=== PATIENT | female | born 1975 | race American Indian/Alaskan Native ===

== ENCOUNTER 2019-06-19 23:02 | Emergency (ER) | payer MEDICAID, OTHER ==
[2019-06-19 23:13] VITALS: PULSE 89
[2019-06-19] MEDS ORDERED: Nitroglycerin 0.4 MG Tab.SL SL ONE (23:21)
[2019-06-19] MEDS ORDERED: Aspirin 81 MG Tab.Chew PO ONE (23:21)
[2019-06-19 23:26] VITALS: BP 143/81
--- NOTE | 2019-06-19 23:41 | EDM.PDOC ---
"ED HPI GENERAL MEDICAL PROBLEM - General Chief Complaint: Abdominal Pain Stated Complaint: LEFT SIDE PAIN Time Seen by Provider: 06/19/19 23:15 Source of Information: Reports: Patient History Limitations: Reports: No Limitations - History of Present Illness INITIAL COMMENTS - FREE TEXT/NARRATIVE: c/o left chest pain radiating to shoulder, has had intermittent episodes x 3 weeks, worse tonight. 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 No hx SD , No hx clotting problems. Blood sugars higher past 3 weeks. No fever chills or cough. No nausea or vomiting - Related Data Allergies Allergy/AdvReac Type Severity Reaction Status Date / Time No Known Allergies Allergy Verified 06/19/19 23:05 Home Meds: Home Meds Dicyclomine [Bentyl] 10 mg PO TID PRN 10/27/14 [History] Insulin Aspart [NovoLOG] 35 units SQ TID 10/27/14 [History] Insulin Detemir [Levemir] 50 unit SQ BID 10/27/14 [History] Ranitidine [Zantac] 75 mg PO BID PRN 10/27/14 [History] Lisinopril 5 mg PO DAILY 08/13/16 [History] Hydrochlorothiazide 12.5 mg PO DAILY 05/11/17 [History] Pantoprazole [ProTONIX] 40 mg PO BIDAC 05/11/17 [History] Pioglitazone HCl [Actos] 15 mg PO DAILY 05/11/17 [History] atorvaSTATin [Lipitor] 10 mg PO DAILY 05/11/17 [History] Past Medical History HEENT History: Reports: None Cardiovascular History: Reports: None Respiratory History: Reports: None Gastrointestinal History: Reports: None Genitourinary History: Reports: None 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 Musculoskeletal History: Reports: None Neurological History: Reports: None Psychiatric History: Reports: None Endocrine/Metabolic History: Reports: Diabetes, Type II Hematologic History: Reports: None Immunologic History: Reports: None Oncologic (Cancer) History: Reports: None Dermatologic History: Reports: None - Past Surgical History GI Surgical History: Reports: Cholecystectomy Social & Family History - Tobacco Use Smoking Status *Q: Never Smoker - Caffeine Use Caffeine Use: Reports: Coffee - Recreational Drug Use Recreational Drug Use: No ED ROS GENERAL - Review of Systems Review Of Systems: ROS reveals no pertinent complaints other than HPI. ED EXAM, GENERAL - Physical Exam Exam: See Below Exam Limited By: No Limitations General Appearance: Alert, Anxious, Mild Distress Eye Exam: Bilateral Eye: EOMI Ears: Normal External Exam Nose: Normal Inspection Throat/Mouth: Normal Inspection Head: Atraumatic, Normocephalic Neck: Normal Inspection Respiratory/Chest: No Respiratory Distress, Lungs Clear, Normal Breath Sounds. No: Chest Non-Tender (left anterior tenderness with palpation) Cardiovascular: Regular Rate, Rhythm, No Murmur. No: No Edema (trace) GI/Abdominal: Normal Bowel Sounds, Soft, Tender (mild epigastric) Back Exam: Full Range of Motion Extremities: Normal Inspection, Other (mild increase pain external roation left shoulder) Neurological: Alert, Oriented, Normal Cognition Psychiatric: Anxious Skin Exam: Warm, Dry, Intact EKG INTERPRETATION Rhythm: NSR Course - Vital Signs Last Recorded V/S: Last Vital Signs Temp 98 F 06/19/19 23:11 Pulse 89 06/19/19 23:11 Resp 16 06/19/19 23:11 BP 143/81 H 06/19/19 23:26 Pulse Ox 100 06/19/19 23:11 - Orders/Labs/Meds Orders: Active Orders 24 hr Category Date Time Status EKG Documentation Completion [RC] ONETIME Care 06/19/19 23:22 Active Chest w Cont [CT] Urgent Exams 06/20/19 00:08 Taken Labs: Laboratory Tests 06/19/19 06/19/19 06/19/19 Range/Units 23:08 23:19 23:19 WBC 9.6 (5.0-10.0) 10^3/uL RBC 4.79 (4.2-5.4) 10^6/uL Hgb 11.2 L D (12.0-16.0) g/dL Hct 35.9 L (37.0-47.0) % MCV 74.9 L D (80-100) fL MCH 23.4 L (27.0-34.0) pg MCHC 31.2 L (33.0-35.0) g/dL Plt Count 278 (150-450) 10^3/uL Neut % (Auto) 54.1 (42.2-75.2) % Lymph % (Auto) 37.4 (20.5-50.1) % [place] % (Auto) 6.4 (2-8) % Eos % (Auto) 1.9 (1.0-3.0) % Baso % (Auto) 0.2 (0.0-1.0) % PT 8.7 L (9.0-12.0) SEC INR 0.8 L (0.9-1.2) D-Dimer, Quantitative 623 H (0-400) ng/mL Sodium (135-145) mmol/L Potassium (3.6-5.0) mmol/L Chloride (101-111) mmol/L Carbon Dioxide (21.0-31.0) mmol/L Anion Gap BUN (7-18) mg/dL Creatinine (0.6-1.3) mg/dL Est Cr Clr Drug Dosing mL/min Estimated GFR (MDRD) BUN/Creatinine Ratio Glucose (74-105) mg/dL Lactic Acid (0.5-2.2) mmol/L Calcium (8.4-10.2) mg/dl Total Bilirubin (0.2-1.0) mg/dL AST (10-42) IU/L ALT (10-60) IU/L Alkaline Phosphatase (42-121) IU/L CK-MB (CK-2) (0.4-4.7) ng/mL Troponin I (0.00-0.02) ng/ml B-Natriuretic Peptide (0-100) pg/ml Total Protein (6.7-8.2) g/dl Albumin (3.2-5.5) g/dl Globulin Albumin/Globulin Ratio Amylase (28-100) U/L Lipase (22-51) U/L Urine Color Yellow (YELLOW) Urine Appearance Clear (CLEAR) Urine pH 6.0 (5.0-9.0) Ur Specific Magnolia 1.015 (1.005-1.030) Urine Protein Negative (NEGATIVE) Urine Glucose (UA) 500 H (NEGATIVE) Urine Ketones Negative (NEGATIVE) Urine Occult Blood Negative (NEGATIVE) Urine Nitrite Negative (NEGATIVE) Urine Bilirubin Negative (NEGATIVE) Urine Urobilinogen 2.0 H (0.2-1.0) mg/dL Ur Leukocyte Esterase Negative (NEGATIVE) 06/19/19 06/19/19 06/19/19 Range/Units 23:19 23:19 23:19 WBC (5.0-10.0) 10^3/uL RBC (4.2-5.4) 10^6/uL Hgb (12.0-16.0) g/dL Hct (37.0-47.0) % MCV (80-100) fL MCH (27.0-34.0) pg MCHC (33.0-35.0) g/dL Plt Count (150-450) 10^3/uL Neut % (Auto) (42.2-75.2) % Lymph % (Auto) (20.5-50.1) % [place] % (Auto) (2-8) % Eos % (Auto) (1.0-3.0) % Baso % (Auto) (0.0-1.0) % PT (9.0-12.0) SEC INR (0.9-1.2) D-Dimer, Quantitative (0-400) ng/mL Sodium 137 (135-145) mmol/L Potassium 3.6 (3.6-5.0) mmol/L Chloride 102 (101-111) mmol/L Carbon Dioxide 28.0 (21.0-31.0) mmol/L Anion Gap 10.6 BUN 16 (7-18) mg/dL Creatinine 0.7 (0.6-1.3) mg/dL Est Cr Clr Drug Dosing 108.30 mL/min Estimated GFR (MDRD) > 60 BUN/Creatinine Ratio 22.85 Glucose 170 H (74-105) mg/dL Lactic Acid 1.4 (0.5-2.2) mmol/L Calcium 9.0 (8.4-10.2) mg/dl Total Bilirubin 0.6 (0.2-1.0) mg/dL AST 16 (10-42) IU/L ALT 17 (10-60) IU/L Alkaline Phosphatase 79 (42-121) IU/L CK-MB (CK-2) 1.80 (0.4-4.7) ng/mL Troponin I < 0.02 (0.00-0.02) ng/ml B-Natriuretic Peptide 7 (0-100) pg/ml Total Protein 7.5 (6.7-8.2) g/dl Albumin 4.0 (3.2-5.5) g/dl Globulin 3.5 Albumin/Globulin Ratio 1.14 Amylase 28 (28-100) U/L Lipase 40 (22-51) U/L Urine Color (YELLOW) Urine Appearance (CLEAR) Urine pH (5.0-9.0) Ur Specific Magnolia (1.005-1.030) Urine Protein (NEGATIVE) Urine Glucose (UA) (NEGATIVE) Urine Ketones (NEGATIVE) Urine Occult Blood (NEGATIVE) Urine Nitrite (NEGATIVE) Urine Bilirubin (NEGATIVE) Urine Urobilinogen (0.2-1.0) mg/dL Ur Leukocyte Esterase (NEGATIVE) 06/20/19 Range/Units 02:04 WBC (5.0-10.0) 10^3/uL RBC (4.2-5.4) 10^6/uL Hgb (12.0-16.0) g/dL Hct (37.0-47.0) % MCV (80-100) fL MCH (27.0-34.0) pg MCHC (33.0-35.0) g/dL Plt Count (150-450) 10^3/uL Neut % (Auto) (42.2-75.2) % Lymph % (Auto) (20.5-50.1) % [place] % (Auto) (2-8) % Eos % (Auto) (1.0-3.0) % Baso % (Auto) (0.0-1.0) % PT (9.0-12.0) SEC INR (0.9-1.2) D-Dimer, Quantitative (0-400) ng/mL Sodium (135-145) mmol/L Potassium (3.6-5.0) mmol/L Chloride (101-111) mmol/L Carbon Dioxide (21.0-31.0) mmol/L Anion Gap BUN (7-18) mg/dL Creatinine (0.6-1.3) mg/dL Est Cr Clr Drug Dosing mL/min Estimated GFR (MDRD) BUN/Creatinine Ratio Glucose (74-105) mg/dL Lactic Acid (0.5-2.2) mmol/L Calcium (8.4-10.2) mg/dl Total Bilirubin (0.2-1.0) mg/dL AST (10-42) IU/L ALT (10-60) IU/L Alkaline Phosphatase (42-121) IU/L CK-MB (CK-2) (0.4-4.7) ng/mL Troponin I < 0.02 (0.00-0.02) ng/ml B-Natriuretic Peptide (0-100) pg/ml Total Protein (6.7-8.2) g/dl Albumin (3.2-5.5) g/dl Globulin Albumin/Globulin Ratio Amylase (28-100) U/L Lipase (22-51) U/L Urine Color (YELLOW) Urine Appearance (CLEAR) Urine pH (5.0-9.0) Ur Specific Magnolia (1.005-1.030) Urine Protein (NEGATIVE) Urine Glucose (UA) (NEGATIVE) Urine Ketones (NEGATIVE) Urine Occult Blood (NEGATIVE) Urine Nitrite (NEGATIVE) Urine Bilirubin (NEGATIVE) Urine Urobilinogen (0.2-1.0) mg/dL Ur Leukocyte Esterase (NEGATIVE) Meds: Medications Discontinued Medications Generic Name Dose Route Start Last Admin Trade Name Freq PRN Reason Stop Dose Admin Aspirin 324 mg 06/19/19 23:21 06/19/19 23:25 Aspirin PO 06/19/19 23:22 324 mg ONETIME ONE Administration Iopamidol 100 ml 06/20/19 00:08 06/20/19 00:50 Isovue-370 (76%) IVPUSH 06/20/19 00:09 100 ml ONETIME ONE Administration Lorazepam 1 mg 06/20/19 00:09 06/20/19 00:15 Ativan IVPUSH 06/20/19 00:10 1 mg ONETIME ONE Administration Nitroglycerin 0.4 mg 06/19/19 23:21 06/19/19 23:26 Nitrostat SL 06/19/19 23:22 0.4 mg ONETIME ONE Administration - Radiology Interpretation Free Text/Narrative:: [facility] Final Radiology Report Call: [phone] assistance Online chat: [email or web address] Name: GENE SALAZAR Age: 43Years F Date: 06/19/2019 SSN: -- : [id number] Study: XR CHEST 1 VIEW FRONTAL Requesting Physician: DAKOTA CERVANTES Images: 1 Addl Studies: Provided Clinical History: Contrast: Contrast Medium: Contrast Amount: Contrast Method: CONFIDENTIALITY STATEMENT This report is intended only for use by the referring physician, and only in accordance with law. If you received this in error, call [phone]. Page 1 of 1 PROCEDURE INFORMATION: Exam: XR Chest, 1 View Exam date and time: 06/19/2019 11:24 PM Clinical history: 43 years old, female; Left-sided chest pain TECHNIQUE: Imaging protocol: XR of the chest Views: 1 view. COMPARISON: No relevant prior studies available. FINDINGS: Lungs: Unremarkable. No consolidation. Pleural space: Unremarkable. No evidence of pneumothorax. Heart/Mediastinum: Unremarkable. Heart size within normal limits for technique. Bones/joints: Unremarkable. IMPRESSION: No acute findings. Thank you for allowing us to participate in the care of your patient. Dictated and Authenticated by: Daryn Peng MD 06/19/2019 11:35 PM Central Time ([place] & [place]) [facility] Final Radiology Report Call: [phone] assistance Online chat: [email or web address] Name: GENE SALAZAR Age: 43Years F Date: 06/20/2019 SSN: -- : [id number] Study: CT CHEST W Requesting Physician: DAKOTA CERVANTES Images: 462 Addl Studies: Provided Clinical History: LEFT CHEST PAIN, D-DIMER 623, SHORTNESS OF BREATH Contrast: With Contrast Medium: ISOVUE 370 Contrast Amount: 100 mL Contrast Method: LAC Page 1 of 2 PROCEDURE INFORMATION: Exam: CT Chest With Contrast Exam date and time: 06/20/2019 12:32 AM Clinical history: 43 years old, female; Shortness of breath; Additional info: Left chest pain, d-dimer 623, shortness of breath TECHNIQUE: Imaging protocol: Computed tomography of the chest with intravenous contrast. Radiation optimization: All CT scans at this facility use at least one of these dose optimization techniques: automated exposure control; mA and/or kV adjustment per patient size (includes targeted exams where dose is matched to clinical indication); or iterative reconstruction. Contrast material: ISOVUE 370; Contrast volume: 100 ml; Contrast route: LAC; COMPARISON: CR Chest 1V Frontal 06/19/2019 11:24 PM FINDINGS: No pulmonary emboli. Lungs: unremarkable. No consolidation. No masses or suspicious nodules. Pleural space: Unremarkable. No pneumothorax. No pleural effusion. Heart: unremarkable. No pericardial effusion. Aorta: unremarkablel. No significant aortic dilitation. Lymph nodes: Unremarkable. No enlarged lymph nodes. Bones/joints: No acute fracture. Soft tissues: 3 cm circumscribed left breast nodule. IMPRESSION: No acute findings. 3 cm left breast nodule may be a fibroadenoma. Correlate with mammography and breast ultrasound findings. GENE SALAZAR | Final Radiology Report CONFIDENTIALITY STATEMENT This report is intended only for use by the referring physician, and only in accordance with law. If you received this in error, call [phone]. Page 2 of 2 Thank you for allowing us to participate in the care of your patient. Dictated and Authenticated by: Daryn Peng MD Departure - Departure Time of Disposition: 02:39 Disposition: Home, Self-Care 01 Condition: Good Clinical Impression: Non-cardiac chest pain Instructions: Chest Wall Pain Forms: ED Department Discharge Additional Instructions: increase fluids today tylenol 650mg every 4 hours as needed for pain light bland diet monitor blood sugars follow up if recurrent symptoms - My Orders Last 24 Hours: My Active Orders 06/19/19 23:22 EKG Documentation Completion [RC] ONETIME 06/20/19 00:08 Chest w Cont [CT] Urgent - Assessment/Plan Last 24 Hours: My Active Orders 06/19/19 23:22 EKG Documentation Completion [RC] ONETIME 06/20/19 00:08 Chest w Cont [CT] Urgent"
[2019-06-19 23:49] LABS: ANION GAP 10.6; CHLORIDE,CL 102 mmol/L (101-111); SODIUM,NA 137 mmol/L (135-145)
[2019-06-20] MEDS ORDERED: Iopamidol 755 Mg/ML 100 ML Bottle IVPUSH ONE (00:08)
[2019-06-20] MEDS ORDERED: LORazepam 2 MG/ML Syringe IVPUSH ONE (00:09)
== END 2019-06-20 02:46 | disposition home or self-care (01) ==
LOC: DL.ED 23:02
DX: R07.89 Other chest pain (principal); E11.9 Type 2 diabetes mellitus without complications; Z79.4 Long term (current) use of insulin; Z79.899 Other long term (current) drug therapy
CPT/HCPCS: 36415; 71045; 71260; 80053; 81003; 82150; 82553; 83605; 83690; 83880; 84484; 85025; 85379; 85610; 93005; 96374; 99285; A9270; J2060; Q9967

== ENCOUNTER 2019-11-09 06:02 | Day surgery (SDC) | payer MEDICAID, OTHER ==
[2019-11-09] MEDS ORDERED: fentaNYL 100 MCG/2 ML SDV IV ONE ×3 (06:03→07:01)
[2019-11-09] MEDS ORDERED: Midazolam 1 MG/ML 2 ML SDV IV ONE ×3 (06:03→07:02)
[2019-11-09] MEDS ORDERED: Sodium Chloride 0.9% 10 ML Syringe FLUSH PRN (06:30)
[2019-11-09] MEDS ORDERED: Dextrose 5%-0.45% NaCl 1,000 ML IV SCH (06:30)
[2019-11-09] MEDS ORDERED: fentaNYL 100 MCG/2 ML SDV ONE (06:38)
[2019-11-09] MEDS ORDERED: Midazolam 1 MG/ML 2 ML SDV ONE (06:38)
[2019-11-09 09:15] VITALS: BP 145/69; PULSE 78
--- NOTE | 2019-11-09 12:59 | OR ---
DATE: 11/09/2019 PROCEDURES: Esophagogastroduodenoscopy and multiple pinch biopsies. INSTRUMENT USED: [id number]-HQ190 Olympus video panendoscope. PREMEDICATIONS: No oral or topical anesthesia used. Fentanyl 100 mcg intravenous, Versed 2 mg intravenous. 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 INDICATION: The patient with persistent abdominal pain and related symptoms, unexplained and not responsive to medical measures. Esophagogastroduodenoscopy is performed for detection of any active erosive lesions, Delgado esophagus and/or malignancy also under consideration, H pylori status to be determined, small bowel biopsies to be obtained for celiac disease if indicated, endoscopic hemostasis therapy if needed. PROCEDURE IN DETAIL: The scope was passed with ease. Adequate visualization of the esophagus was made from proximal to distal areas. No upper esophageal lesions identified. No distal esophageal stricture. No uphill or downhill esophageal varices noted. No Crystal-Carnes tear. No esophageal polyp or tumor mass identified. Z-line was seen at around 40 cm distal to the oral verge, configuration consistent with grade 1 by ZAP classification. No proximal gastric varices identified. Gastric fundus examination by retroflexion showed no polypoid lesions. No gastric ulcer, malignant mass, or vascular ectasia identified. Duodenal bulb showed no ulcer. Visualized second part of the duodenum was unremarkable. Multiple pinch biopsies, 4 in number, were taken from different areas of the second part of the duodenum and tissues were also obtained from the duodenal bulb at 9 and 12 o'clock positions and sent for any histopathologic evidence of celiac disease. Multiple pinch biopsies were also taken from the gastric antrum and proximal body and sent for PyloriTek test for H pylori and histopathology. No bleeding was noted from any of the visualized areas at the completion of examination. Photographs were taken of the duodenal bulb, gastric antrum, fundus, and distal esophagus. IMPRESSION: Normal study. The patient tolerated the procedure well. [facility] /[id number]
--- NOTE | 2019-11-09 14:46 | LETTER ---
11/09/2019 Virgen Pop NP [facility] [address] [place] [address] RE: GENE RODRIGUEZ : 1975 Dear Ms. Lawson: Ms. Gene Rodriguez had esophagogastroduodenoscopy done this morning and she tolerated the procedure well. I herewith send a copy of the endoscopy note and photographs for your review. Thank you. Sincerely, [facility] /[id number]
== END 2019-11-09 09:16 | disposition home or self-care (01) ==
LOC: DL.ENDO 06:02
PROVIDERS: ATTEND Internal Medicine Gastroenterology
DX: R10.13 Epigastric pain (principal); E66.09 Other obesity due to excess calories; E11.9 Type 2 diabetes mellitus without complications; I10 Essential (primary) hypertension; E78.5 Hyperlipidemia, unspecified; D50.9 Iron deficiency anemia, unspecified; Z88.5 Allergy status to narcotic agent; Z86.69 Personal history of other diseases of the nervous system and sense organs; Z86.018 Personal history of other benign neoplasm; Z90.49 Acquired absence of other specified parts of digestive tract; Z68.41 Body mass index [BMI] 40.0-44.9, adult
CPT/HCPCS: 43239; 87077; J2250; J3010; J7042

== ENCOUNTER → 2019-11-12 | Day surgery (SDC) | payer MEDICAID, OTHER ==
[~2019-11-12] MED LIST: Dextrose 5%-0.45% NaCl 1,000 ML IV SCH; Midazolam 1 MG/ML 2 ML SDV IV ONE; Midazolam 1 MG/ML 2 ML SDV ONE; fentaNYL 100 MCG/2 ML SDV IV ONE; fentaNYL 100 MCG/2 ML SDV ONE
--- NOTE | 2019-11-12 08:47 | OR ---
DATE: 11/12/2019 PROCEDURES: Total colonoscopy, narrow-band imaging, multiple cold snare polypectomies, and biopsies. INSTRUMENT USED: [id number]-H190DL Olympus video colonoscope. PREMEDICATIONS: Fentanyl 150 mcg intravenous, Versed 4 mg intravenous, nasal O2 cannula. The procedure was done under pulse oximetry, BP recording, and monitor technician. INDICATION: The patient with chronic diarrhea and abdominal pain, unexplained and not responsive to medical measures. Colonoscopic examination is done for detection of any polypoid lesions and removal, biopsies to be obtained for microscopic colitis, endoscopic hemostasis therapy if needed. DESCRIPTION OF PROCEDURE: Initial rectal exam was unremarkable. Rigid anoscopy was normal. The colonoscope was passed with ease up to the ileocecal area. Photographs were taken of the cecum showing 8 mm sized benign-appearing sessile polyp, NBI views were obtained. Piecemeal cold polypectomy was done, the tissues were retrieved and sent for histopathology. NBI views were obtained of the polyp. No bleeding was noted from any of the visualized areas at the commencement of the examination. The bowel preparation was found to be adequate, Campbell scale 2 in all the regions, total score 6. In the distal descending colon, 5 mm sized benign-appearing polyp was noted, cold snare polypectomy was done, the tissue was retrieved and sent for histopathology. No stricture. No vascular ectasia. No large isolated ulcerations seen. No evidence of diffuse inflammatory bowel disease in the form of friability, contact bleeding, or ulcerations. Probing the proximal sides of folds and flexures using adequate distention and clearing up the stool material, withdrawal of the scope was made. Multiple pinch biopsies were obtained from the normal-appearing mucosa of the mid transverse colon, mid descending colon, and rectosigmoid, and sent for histopathologic evidence of microscopic colitis. No bleeding was noted from any of the visualized areas at the completion of examination. IMPRESSION: Multiple colonic polyps. The patient tolerated the procedure well. [facility] /[id number]
--- NOTE | 2019-11-12 10:38 | LETTER ---
11/12/2019 Virgen Pop NP [facility] [address] [place] [address] RE: GENE SALAZAR : 1975 Dear Ms. Pop: Ms. Gene Nevillebrick had colonoscopic examination done this morning and she tolerated the procedure well. I herewith send a copy of the endoscopy note and photographs for your review. Thank you. Sincerely, [facility] /[id number]
[2019-11-12 12:11] VITALS: BP 132/65; PULSE 73
== END ==
LOC: DL.ENDO 06:11
PROVIDERS: ATTEND Internal Medicine Gastroenterology
DX: D12.0 Benign neoplasm of cecum (principal); D12.4 Benign neoplasm of descending colon; E66.01 Morbid (severe) obesity due to excess calories; E11.9 Type 2 diabetes mellitus without complications; I10 Essential (primary) hypertension; D50.9 Iron deficiency anemia, unspecified; E78.5 Hyperlipidemia, unspecified; Z90.49 Acquired absence of other specified parts of digestive tract; Z88.5 Allergy status to narcotic agent; Z88.8 Allergy status to other drugs, medicaments and biological substances; Z86.018 Personal history of other benign neoplasm; Z86.19 Personal history of other infectious and parasitic diseases; Z68.41 Body mass index [BMI] 40.0-44.9, adult
CPT/HCPCS: 45380; 45385; J2250; J3010; J7042

== ENCOUNTER 2020-04-04 12:09 | Inpatient (IN) | payer OTHER ==
[2020-04-04] MEDS ORDERED: Sodium Chloride 0.9% 1,000 ML IV ONE (12:43)
--- NOTE | 2020-04-04 12:43 | EDM.PDOC ---
ED HPI GENERAL MEDICAL PROBLEM - General Chief Complaint: Skin Complaint Stated Complaint: LOWER INFLAMATION Time Seen by Provider: 04/04/20 12:25 Source of Information: Reports: Patient History Limitations: Reports: No Limitations - History of Present Illness INITIAL COMMENTS - FREE TEXT/NARRATIVE: This 44 yo female patient was sent to the ED from the [facility] due to left lower extremity swelling, redness and pain. The patient reports she woke up this morning at about 0400 with pain to her left lower extremity. The patient reports she felt normal yesterday. The patient has no recent history of injury. The patient reports she had a previous infection in the same area 4 years ago. The patient had a temp of 102.5 while at home and also at the [facility]. The patient did test negative for COVID while at the [facility]. The patient reports she took Tylenol (2000 mg) this morning and was given an injection of Toradol (60 mg) while at the Clinic. The patient reports her pain has gotten a little better, but she continues to have pain radiating up to her buttocks. 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 Left Lower Leg Pain Score (Numeric/FACES): 9 - Related Data Allergies Allergy/AdvReac Type Severity Reaction Status Date / Time codeine AdvReac Lightheaded Verified 04/04/20 12:30 ness tramadol AdvReac Dizziness Verified 04/04/20 12:30 Home Meds: Home Meds Lisinopril 5 mg PO DAILY 08/13/16 [History] Hydrochlorothiazide 12.5 mg PO DAILY 05/11/17 [History] Pantoprazole [ProTONIX] 40 mg PO DAILY 05/11/17 [History] atorvaSTATin [Lipitor] 10 mg PO DAILY 05/11/17 [History] Furosemide 20 mg PO BID 11/06/19 [History] Triamcinolone Acetonide [Kenalog 0.1% Lotion] 1 applic TOP ASDIRECTED 11/06/19 [History] glipiZIDE [Glipizide ER] 5 mg PO DAILY 11/06/19 [History] metFORMIN [Glucophage] 500 mg PO BID 11/06/19 [History] Alogliptin Benzoate [Alogliptin] 25 mg PO DAILY 04/04/20 [History] Amitriptyline [Elavil] 50 mg PO BEDTIME 04/04/20 [History] Baclofen 10 mg PO BEDTIME PRN 04/04/20 [History] Furosemide 20 mg PO BEDTIME 04/04/20 [History] Insulin Aspart [Insulin Aspart Flexpen] 40 units SQ ASDIRECTED 04/04/20 [History] Insulin Detemir [Levemir] 50 units SQ BID 04/04/20 [History] Meclizine HCl 25 mg PO TID PRN 04/04/20 [History] Multivitamin [Multi-Vitamin Daily] 1 tab PO DAILY 04/04/20 [History] Potassium Chloride [K-Tab ER] 10 meq PO DAILY 04/04/20 [History] metroNIDAZOLE [Metronidazole] 1 applic TOP BID PRN 04/04/20 [History] Past Medical History HEENT History: Reports: None Cardiovascular History: Reports: High Cholesterol, Hypertension Respiratory History: Reports: None Gastrointestinal History: Reports: GERD, Inflammatory Bowel Disease Genitourinary History: Reports: None 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 Musculoskeletal History: Reports: Arthritis Neurological History: Reports: Migraines Psychiatric History: Reports: None Endocrine/Metabolic History: Reports: Diabetes, Type II, Obesity/BMI 30+ Hematologic History: Reports: Anemia Immunologic History: Reports: Other (See Below) Other Immunologic History: SEPSIS WITH CUTANEOUS MANIFESTATIONS Oncologic (Cancer) History: Reports: None Dermatologic History: Reports: Cellulitis - Infectious Disease History Infectious Disease History: Reports: Helicobacter Pylori - Past Surgical History Head Surgeries/Procedures: Reports: None HEENT Surgical History: Reports: Tonsillectomy Cardiovascular Surgical History: Reports: None Respiratory Surgical History: Reports: None GI Surgical History: Reports: Cholecystectomy, EGD Female Surgical History: Reports: None Musculoskeletal Surgical History: Reports: Arthroscopic Knee Social & Family History - Caffeine Use Caffeine Use: Reports: Coffee, Energy Drinks, Soda Other Caffeine Use: 24 oz coffee daily. 60 oz energy drinks daily. 40 oz soda daily ED ROS GENERAL - Review of Systems Review Of Systems: Comprehensive ROS is negative, except as noted in HPI. ED EXAM, SKIN/RASH Exam: See Below Exam Limited By: No Limitations General Appearance: Alert, WD/WN, Moderate Distress, Obese Eye Exam: Bilateral Eye: EOMI, Normal Inspection, PERRL Ears: Normal External Exam, Normal Canal, Hearing Grossly Normal, Normal TMs Nose: Normal Inspection, Normal Mucosa, No Blood Throat/Mouth: Normal Inspection, Normal Lips, Normal Teeth, Normal Gums, Normal Oropharynx, Normal Voice, No Airway Compromise Head: Atraumatic, Normocephalic Neck: Normal Inspection, Supple, Non-Tender, Full Range of Motion Respiratory/Chest: No Respiratory Distress, Lungs Clear, Normal Breath Sounds, No Accessory Muscle Use, Chest Non-Tender Cardiovascular: Normal Peripheral Pulses, Regular Rate, Rhythm, No Edema, No Gallop, No JVD, No Murmur, No Rub GI/Abdominal: Normal Bowel Sounds, Soft, Non-Tender, No Organomegaly, No Dis tention, No Abnormal Bruit, No Mass (Female) Exam: Deferred Rectal (Female) Exam: Deferred Back Exam: Normal Inspection, Full Range of Motion, NT Extremities: Leg Pain (left lower extremity pain with erythema mid lower left leg with no evidence of wound or injury) Neurological: Alert, Oriented, CN II-XII Intact, Normal Cognition, Normal Gait, Normal Reflexes, No Motor/Sensory Deficits Psychiatric: Normal Affect, Normal Mood Skin: Warm, Dry, Intact, Erythema Location, Skin: Lower Extremity, Left Characteristics: Erythematous Associated features: Warmth, Tenderness, Swelling, Inflammation. No: Induration, Crusting, Weeping Lymphatic: No Adenopathy Course - Vital Signs Last Recorded V/S: Last Vital Signs Temp 37.5 C 04/04/20 12:23 Pulse 106 H 04/04/20 12:23 Resp 17 04/04/20 12:23 BP 125/63 04/04/20 12:23 Pulse Ox 96 04/04/20 12:23 - Orders/Labs/Meds Orders: Active Orders 24 hr Category Date Time Status Admission Diagnosis [ADT] Stat ADT 04/04/20 13:41 Ordered Admission Status [Patient Status] [ADT] Routine ADT 04/04/20 13:41 Ordered CULTURE BLOOD [BC] Stat Lab 04/04/20 12:27 Received CULTURE BLOOD [BC] Stat Lab 04/04/20 12:48 Received D-DIMER QUANTITATIVE [COAG] Stat Lab 04/04/20 12:37 Ordered Vancomycin 2 gm Med 04/04/20 13:23 Active Sodium Chloride 0.9% [Normal Saline] 500 ml IV ONETIME Blood Culture x2 Reflex Set [OM.PC] Stat Oth 04/04/20 12:30 Ordered Medication Orders Vancomycin HCl 2 gm/ Sodium (Chloride) 500 mls @ 250 mls/hr IV ONETIME ONE Stop: 04/04/20 15:22 Labs: Laboratory Tests 04/04/20 04/04/20 04/04/20 Range/Units 12:27 12:27 12:27 WBC 26.3 H* (5.0-10.0) 10^3/uL RBC 4.82 (4.2-5.4) 10^6/uL Hgb 11.2 L (12.0-16.0) g/dL Hct 35.5 L (37.0-47.0) % MCV 73.7 L (80-100) fL MCH 23.2 L (27.0-34.0) pg MCHC 31.5 L (33.0-35.0) g/dL Plt Count 254 (150-450) 10^3/uL Neut % (Auto) 92.4 H (42.2-75.2) % Lymph % (Auto) 3.2 L (20.5-50.1) % Nolan % (Auto) 4.3 (2-8) % Eos % (Auto) 0.0 L (1.0-3.0) % Baso % (Auto) 0.1 (0.0-1.0) % Sodium 137 (136-145) mmol/L Potassium 3.2 L (3.5-5.1) mmol/L Chloride 98 (98-107) mmol/L Carbon Dioxide 28 (21-32) mmol/L Anion Gap 14.2 H (7-13) mEq/L BUN 19 H (7-18) mg/dL Creatinine 1.19 H (0.55-1.02) mg/dL Est Cr Clr Drug Dosing 63.05 mL/min Estimated GFR (MDRD) 49 BUN/Creatinine Ratio 16.0 (No establ ref range) Glucose 150 H (74-99) mg/dL Lactic Acid 1.9 (0.4-2.0) mmol/L Calcium 8.8 (8.5-10.1) mg/dL Total Bilirubin 0.8 (0.2-1.0) mg/dL AST 22 (15-37) U/L ALT 34 (14-59) U/L Alkaline Phosphatase 82 (46-116) U/L Total Protein 8.0 (6.4-8.2) g/dL Albumin 3.8 (3.4-5.0) g/dL Globulin 4.2 Albumin/Globulin Ratio 0.9 Urine Color (YELLOW) Urine Appearance (CLEAR) Urine pH (5.0-9.0) Ur Specific [place] (1.005-1.030) Urine Protein (NEGATIVE) Urine Glucose (UA) (NEGATIVE) Urine Ketones (NEGATIVE) Urine Occult Blood (NEGATIVE) Urine Nitrite (NEGATIVE) Urine Bilirubin (NEGATIVE) Urine Urobilinogen (0.2-1.0) mg/dL Ur Leukocyte Esterase (NEGATIVE) Urine HCG, Qual Urine Opiates Screen (NEGATIVE) Ur Oxycodone Screen (NEGATIVE) Urine Methadone Screen (NEGATIVE) Ur Barbiturates Screen (NEGATIVE) U Tricyclic Antidepress (NEGATIVE) Ur Phencyclidine Scrn (NEGATIVE) Ur Amphetamine Screen (NEGATIVE) U Methamphetamines Scrn (NEGATIVE) Urine MDMA Screen (NEGATIVE) U Benzodiazepines Scrn (NEGATIVE) Urine Cocaine Screen (NEGATIVE) U Marijuana (THC) Screen (NEGATIVE) Ethyl Alcohol < 3 (0) mg/dL 04/04/20 04/04/20 04/04/20 Range/Units 12:47 12:47 12:47 WBC (5.0-10.0) 10^3/uL RBC (4.2-5.4) 10^6/uL Hgb (12.0-16.0) g/dL Hct (37.0-47.0) % MCV (80-100) fL MCH (27.0-34.0) pg MCHC (33.0-35.0) g/dL Plt Count (150-450) 10^3/uL Neut % (Auto) (42.2-75.2) % Lymph % (Auto) (20.5-50.1) % Nolan % (Auto) (2-8) % Eos % (Auto) (1.0-3.0) % Baso % (Auto) (0.0-1.0) % Sodium (136-145) mmol/L Potassium (3.5-5.1) mmol/L Chloride (98-107) mmol/L Carbon Dioxide (21-32) mmol/L Anion Gap (7-13) mEq/L BUN (7-18) mg/dL Creatinine (0.55-1.02) mg/dL Est Cr Clr Drug Dosing mL/min Estimated GFR (MDRD) BUN/Creatinine Ratio (No establ ref range) Glucose (74-99) mg/dL Lactic Acid (0.4-2.0) mmol/L Calcium (8.5-10.1) mg/dL Total Bilirubin (0.2-1.0) mg/dL AST (15-37) U/L ALT (14-59) U/L Alkaline Phosphatase (46-116) U/L Total Protein (6.4-8.2) g/dL Albumin (3.4-5.0) g/dL Globulin Albumin/Globulin Ratio Urine Color Yellow (YELLOW) Urine Appearance Clear (CLEAR) Urine pH 5.0 (5.0-9.0) Ur Specific [place] 1.015 (1.005-1.030) Urine Protein Negative (NEGATIVE) Urine Glucose (UA) Negative (NEGATIVE) Urine Ketones Negative (NEGATIVE) Urine Occult Blood Negative (NEGATIVE) Urine Nitrite Negative (NEGATIVE) Urine Bilirubin Negative (NEGATIVE) Urine Urobilinogen 0.2 (0.2-1.0) mg/dL Ur Leukocyte Esterase Negative (NEGATIVE) Urine HCG, Qual Negative Urine Opiates Screen Negative (NEGATIVE) Ur Oxycodone Screen Negative (NEGATIVE) Urine Methadone Screen Negative (NEGATIVE) Ur Barbiturates Screen Negative (NEGATIVE) U Tricyclic Antidepress Negative (NEGATIVE) Ur Phencyclidine Scrn Negative (NEGATIVE) Ur Amphetamine Screen Negative (NEGATIVE) U Methamphetamines Scrn Negative (NEGATIVE) Urine MDMA Screen Negative (NEGATIVE) U Benzodiazepines Scrn Negative (NEGATIVE) Urine Cocaine Screen Negative (NEGATIVE) U Marijuana (THC) Screen Negative (NEGATIVE) Ethyl Alcohol (0) mg/dL Meds: Medications Generic Name Dose Route Start Last Admin Trade Name Freq PRN Reason Stop Dose Admin Vancomycin HCl 2 gm/ Sodium 500 mls @ 250 mls/hr 04/04/20 13:23 Chloride IV 04/04/20 15:22 ONETIME ONE Discontinued Medications Generic Name Dose Route Start Last Admin Trade Name Freq PRN Reason Stop Dose Admin Sodium Chloride 1,000 mls @ 999 mls/hr 04/04/20 12:43 04/04/20 12:55 Normal Saline IV 04/04/20 13:43 999 mls/hr .BOLUS ONE Administration Morphine Sulfate 2 mg 04/04/20 13:46 Morphine IVPUSH 04/04/20 13:47 ONETIME ONE Departure - Departure Time of Disposition: 13:50 Disposition: Admitted As Inpatient 66 Condition: Fair Clinical Impression: Cellulitis Qualifiers: Site of cellulitis: extremity Site of cellulitis of extremity: lower extremity Laterality: left Qualified Code(s): L03.116 - Cellulitis of left lower limb - Discharge Information *PRESCRIPTION DRUG MONITORING PROGRAM REVIEWED*: Not Applicable *COPY OF PRESCRIPTION DRUG MONITORING REPORT IN PATIENT BRIAN: Not Applicable Care Plan Goals: Discussed the patient's history examination, lab results and initial treatments with Dr. aHmm. Dr. Hamm accepted the patient for continued evaluation and man agement as an inpatient at [facility] in [place]. The patient was advised of the plan for admission and reported increased pain in her left lower leg. An order was placed for 2 mg of IV Morphine to be given before admission. Sepsis Event Note (ED) - Evaluation Sepsis Screening Result: No Definite Risk - Focused Exam Vital Signs: Vital Signs Temp Pulse Resp BP Pulse Ox 04/04/20 12:23 37.5 C 106 H 17 125/63 96 - My Orders Last 24 Hours: My Active Orders 04/04/20 12:27 CULTURE BLOOD [BC] Stat 04/04/20 12:30 Blood Culture x2 Reflex Set [OM.PC] Stat 04/04/20 12:37 D-DIMER QUANTITATIVE [COAG] Stat 04/04/20 12:48 CULTURE BLOOD [BC] Stat 04/04/20 13:23 Vancomycin 2 gm Sodium Chloride 0.9% [Normal Saline] 500 ml IV ONETIME 04/04/20 13:41 Admission Diagnosis [ADT] Stat Admission Status [Patient Status] [ADT] Routine - Assessment/Plan Last 24 Hours: My Active Orders 04/04/20 12:27 CULTURE BLOOD [BC] Stat 04/04/20 12:30 Blood Culture x2 Reflex Set [OM.PC] Stat 04/04/20 12:37 D-DIMER QUANTITATIVE [COAG] Stat 04/04/20 12:48 CULTURE BLOOD [BC] Stat 04/04/20 13:23 Vancomycin 2 gm Sodium Chloride 0.9% [Normal Saline] 500 ml IV ONETIME 04/04/20 13:41 Admission Diagnosis [ADT] Stat Admission Status [Patient Status] [ADT] Routine
[2020-04-04 12:58] LABS: ANION GAP 14.2 mEq/L (7-13); CHLORIDE,CL 98 mmol/L (98-107); SODIUM,NA 137 mmol/L (136-145)
[2020-04-04] MEDS ORDERED: Vancomycin 2 GM in Sodium Chloride 0.9% 500 ML IV ONE (13:23)
[2020-04-04] MEDS ORDERED: Morphine 2 MG/ML SYRINGE IVPUSH ONE (13:46)
[2020-04-04] MEDS ORDERED: 50% Dextrose in Water 50 ML Syringe IVPUSH PRN (15:06)
[2020-04-04] MEDS ORDERED: Docusate Sodium 100 MG Cap PO PRN (15:10)
[2020-04-04] MEDS ORDERED: Ondansetron 4 MG/2 ML SDV IVPUSH PRN (15:10)
--- NOTE | 2020-04-04 15:59 | PCM.HP ---
H&P History of Present Illness - General Date of Service: 04/04/20 Admit Problem/Dx: Admission Diagnosis/Problem Admission Diagnosis/Problem Cellulitis Source of Information: Patient - History of Present Illness Initial Comments - Free Text/Narative: 44-year-old with a history of diabetes. Blood sugars usually run in the high 100s. His history of left lower extremity cellulitis. She also has a history of the ectopic dermatitis. 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 Noted left lower extremity redness, associated with pain with touching. No open pain, no chest pain. No urinary burning Left Lower Leg Pain Score (Numeric/FACES): 9 - Related Data Allergies/Adverse Reactions: Allergies Allergy/AdvReac Type Severity Reaction Status Date / Time liraglutide [From Victoza] Allergy Diarrhea Verified 04/04/20 14:37 codeine AdvReac Lightheaded Verified 04/04/20 12:30 ness tramadol AdvReac Dizziness Verified 04/04/20 12:30 Home Medications: Home Meds Lisinopril 5 mg PO DAILY 08/13/16 [History] Hydrochlorothiazide 12.5 mg PO DAILY 05/11/17 [History] Pantoprazole [ProTONIX] 40 mg PO DAILY 05/11/17 [History] atorvaSTATin [Lipitor] 10 mg PO DAILY 05/11/17 [History] Triamcinolone Acetonide [Kenalog 0.1% Lotion] 1 applic TOP BID PRN 11/06/19 [History] glipiZIDE [Glipizide ER] 10 mg PO DAILY 11/06/19 [History] metFORMIN [Glucophage] 500 mg PO BID 11/06/19 [History] Alogliptin Benzoate [Alogliptin] 25 mg PO DAILY 04/04/20 [History] Amitriptyline [Elavil] 50 mg PO BEDTIME 04/04/20 [History] Baclofen 10 mg PO BEDTIME PRN 04/04/20 [History] Furosemide 20 mg PO BEDTIME 04/04/20 [History] Insulin Aspart [Insulin Aspart Flexpen] 40 units SQ TIDMEALS 04/04/20 [History] Insulin Detemir [Levemir] 50 units SQ BID 04/04/20 [History] Meclizine HCl 25 mg PO TID PRN 04/04/20 [History] Multivitamin [Multi-Vitamin Daily] 1 tab PO DAILY 04/04/20 [History] Potassium Chloride [K-Tab ER] 10 meq PO DAILY 04/04/20 [History] metroNIDAZOLE [Metronidazole] 1 applic TOP BID PRN 04/04/20 [History] Past Medical History HEENT History: Reports: None Cardiovascular History: Reports: High Cholesterol, Hypertension Respiratory History: Reports: None Gastrointestinal History: Reports: GERD, Inflammatory Bowel Disease Genitourinary History: Reports: None 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 low vit d Immunologic History: Reports: Other (See Below) Other Immunologic History: SEPSIS WITH CUTANEOUS MANIFESTATIONS Oncologic (Cancer) History: Reports: None Dermatologic History: Reports: Cellulitis, Psoriasis Other Dermatologic History: plaque psoriasis - Infectious Disease History Infectious Disease History: Reports: Chicken Pox, Helicobacter Pylori - Past Surgical History Head Surgeries/Procedures: Reports: None HEENT Surgical History: Reports: Tonsillectomy Cardiovascular Surgical History: Reports: None Respiratory Surgical History: Reports: None GI Surgical History: Reports: Cholecystectomy, EGD, Other (See Below) Female Surgical History: Reports: None Musculoskeletal Surgical History: Reports: Arthroscopic Knee, Other (See Below) Other Musculoskeletal Surgeries/Procedures:: Left knee surgery x 3 Social & Family History - Tobacco Use Smoking Status *Q: Former Smoker Used Tobacco, but Quit: Yes Month/Year Tobacco Last Used: 2 years ago - Caffeine Use Caffeine Use: Reports: Energy Drinks, Soda, Tea Other Caffeine Use: 24 oz coffee daily. 60 oz energy drinks daily. 40 oz soda daily - Recreational Drug Use Recreational Drug Use: No H&P Review of Systems - Review of Systems: Review Of Systems: See Below General: Reports: Fever, Chills, Malaise Cardiovascular: Denies: Chest Pain, Edema Gastrointestinal: Denies: Abdominal Pain Genitourinary: Denies: Dysuria Skin: Reports: Erythema (Left lower extremity) Exam - Exam Exam: See Below - Vital Signs Vital Signs: Last Vital Signs Temp 98.4 F 04/04/20 14:30 Pulse 97 04/04/20 14:30 Resp 20 04/04/20 14:30 BP 117/57 L 04/04/20 14:30 Pulse Ox 98 04/04/20 15:10 Weight: 288 lb 12.8 oz - Exam General: Alert, Oriented Neck: Supple Lungs: Clear to Auscultation, Normal Respiratory Effort Cardiovascular: Regular Rate, Regular Rhythm GI/Abdominal Exam: Normal Bowel Sounds, Soft, Non-Tender Extremities: No Pedal Edema Skin: Warm, Other (Left lower extremity mid calf, circumferential redness, tenderness, warmth) Neuro Extensive - Mental Status: Alert, Oriented x3 - Patient Data Lab Results Last 24 hrs: Laboratory Results - last 24 hr 04/04/20 04/04/20 04/04/20 Range/Units 12:27 12:27 12:27 WBC 26.3 H* (5.0-10.0) 10^3/uL RBC 4.82 (4.2-5.4) 10^6/uL Hgb 11.2 L (12.0-16.0) g/dL Hct 35.5 L (37.0-47.0) % MCV 73.7 L (80-100) fL MCH 23.2 L (27.0-34.0) pg MCHC 31.5 L (33.0-35.0) g/dL Plt Count 254 (150-450) 10^3/uL Neut % (Auto) 92.4 H (42.2-75.2) % Lymph % (Auto) 3.2 L (20.5-50.1) % [place] % (Auto) 4.3 (2-8) % Eos % (Auto) 0.0 L (1.0-3.0) % Baso % (Auto) 0.1 (0.0-1.0) % D-Dimer, Quantitative (0-400) ng/mL Sodium 137 (136-145) mmol/L Potassium 3.2 L (3.5-5.1) mmol/L Chloride 98 (98-107) mmol/L Carbon Dioxide 28 (21-32) mmol/L Anion Gap 14.2 H (7-13) mEq/L BUN 19 H (7-18) mg/dL Creatinine 1.19 H (0.55-1.02) mg/dL Est Cr Clr Drug Dosing 63.05 mL/min Estimated GFR (MDRD) 49 BUN/Creatinine Ratio 16.0 (No establ ref range) Glucose 150 H (74-99) mg/dL Lactic Acid 1.9 (0.4-2.0) mmol/L Calcium 8.8 (8.5-10.1) mg/dL Total Bilirubin 0.8 (0.2-1.0) mg/dL AST 22 (15-37) U/L ALT 34 (14-59) U/L Alkaline Phosphatase 82 (46-116) U/L Total Protein 8.0 (6.4-8.2) g/dL Albumin 3.8 (3.4-5.0) g/dL Globulin 4.2 Albumin/Globulin Ratio 0.9 Urine Color (YELLOW) Urine Appearance (CLEAR) Urine pH (5.0-9.0) Ur Specific [place] (1.005-1.030) Urine Protein (NEGATIVE) Urine Glucose (UA) (NEGATIVE) Urine Ketones (NEGATIVE) Urine Occult Blood (NEGATIVE) Urine Nitrite (NEGATIVE) Urine Bilirubin (NEGATIVE) Urine Urobilinogen (0.2-1.0) mg/dL Ur Leukocyte Esterase (NEGATIVE) Urine HCG, Qual Urine Opiates Screen (NEGATIVE) Ur Oxycodone Screen (NEGATIVE) Urine Methadone Screen (NEGATIVE) Ur Barbiturates Screen (NEGATIVE) U Tricyclic Antidepress (NEGATIVE) Ur Phencyclidine Scrn (NEGATIVE) Ur Amphetamine Screen (NEGATIVE) U Methamphetamines Scrn (NEGATIVE) Urine MDMA Screen (NEGATIVE) U Benzodiazepines Scrn (NEGATIVE) Urine Cocaine Screen (NEGATIVE) U Marijuana (THC) Screen (NEGATIVE) Ethyl Alcohol < 3 (0) mg/dL 04/04/20 04/04/20 04/04/20 Range/Units 12:27 12:47 12:47 WBC (5.0-10.0) 10^3/uL RBC (4.2-5.4) 10^6/uL Hgb (12.0-16.0) g/dL Hct (37.0-47.0) % MCV (80-100) fL MCH (27.0-34.0) pg MCHC (33.0-35.0) g/dL Plt Count (150-450) 10^3/uL Neut % (Auto) (42.2-75.2) % Lymph % (Auto) (20.5-50.1) % [place] % (Auto) (2-8) % Eos % (Auto) (1.0-3.0) % Baso % (Auto) (0.0-1.0) % D-Dimer, Quantitative 1110 H (0-400) ng/mL Sodium (136-145) mmol/L Potassium (3.5-5.1) mmol/L Chloride (98-107) mmol/L Carbon Dioxide (21-32) mmol/L Anion Gap (7-13) mEq/L BUN (7-18) mg/dL Creatinine (0.55-1.02) mg/dL Est Cr Clr Drug Dosing mL/min Estimated GFR (MDRD) BUN/Creatinine Ratio (No establ ref range) Glucose (74-99) mg/dL Lactic Acid (0.4-2.0) mmol/L Calcium (8.5-10.1) mg/dL Total Bilirubin (0.2-1.0) mg/dL AST (15-37) U/L ALT (14-59) U/L Alkaline Phosphatase (46-116) U/L Total Protein (6.4-8.2) g/dL Albumin (3.4-5.0) g/dL Globulin Albumin/Globulin Ratio Urine Color Yellow (YELLOW) Urine Appearance Clear (CLEAR) Urine pH 5.0 (5.0-9.0) Ur Specific [place] 1.015 (1.005-1.030) Urine Protein Negative (NEGATIVE) Urine Glucose (UA) Negative (NEGATIVE) Urine Ketones Negative (NEGATIVE) Urine Occult Blood Negative (NEGATIVE) Urine Nitrite Negative (NEGATIVE) Urine Bilirubin Negative (NEGATIVE) Urine Urobilinogen 0.2 (0.2-1.0) mg/dL Ur Leukocyte Esterase Negative (NEGATIVE) Urine HCG, Qual Negative Urine Opiates Screen (NEGATIVE) Ur Oxycodone Screen (NEGATIVE) Urine Methadone Screen (NEGATIVE) Ur Barbiturates Screen (NEGATIVE) U Tricyclic Antidepress (NEGATIVE) Ur Phencyclidine Scrn (NEGATIVE) Ur Amphetamine Screen (NEGATIVE) U Methamphetamines Scrn (NEGATIVE) Urine MDMA Screen (NEGATIVE) U Benzodiazepines Scrn (NEGATIVE) Urine Cocaine Screen (NEGATIVE) U Marijuana (THC) Screen (NEGATIVE) Ethyl Alcohol (0) mg/dL 04/04/20 Range/Units 12:47 WBC (5.0-10.0) 10^3/uL RBC (4.2-5.4) 10^6/uL Hgb (12.0-16.0) g/dL Hct (37.0-47.0) % MCV (80-100) fL MCH (27.0-34.0) pg MCHC (33.0-35.0) g/dL Plt Count (150-450) 10^3/uL Neut % (Auto) (42.2-75.2) % Lymph % (Auto) (20.5-50.1) % [place] % (Auto) (2-8) % Eos % (Auto) (1.0-3.0) % Baso % (Auto) (0.0-1.0) % D-Dimer, Quantitative (0-400) ng/mL Sodium (136-145) mmol/L Potassium (3.5-5.1) mmol/L Chloride (98-107) mmol/L Carbon Dioxide (21-32) mmol/L Anion Gap (7-13) mEq/L BUN (7-18) mg/dL Creatinine (0.55-1.02) mg/dL Est Cr Clr Drug Dosing mL/min Estimated GFR (MDRD) BUN/Creatinine Ratio (No establ ref range) Glucose (74-99) mg/dL Lactic Acid (0.4-2.0) mmol/L Calcium (8.5-10.1) mg/dL Total Bilirubin (0.2-1.0) mg/dL AST (15-37) U/L ALT (14-59) U/L Alkaline Phosphatase (46-116) U/L Total Protein (6.4-8.2) g/dL Albumin (3.4-5.0) g/dL Globulin Albumin/Globulin Ratio Urine Color (YELLOW) Urine Appearance (CLEAR) Urine pH (5.0-9.0) Ur Specific [place] (1.005-1.030) Urine Protein (NEGATIVE) Urine Glucose (UA) (NEGATIVE) Urine Ketones (NEGATIVE) Urine Occult Blood (NEGATIVE) Urine Nitrite (NEGATIVE) Urine Bilirubin (NEGATIVE) Urine Urobilinogen (0.2-1.0) mg/dL Ur Leukocyte Esterase (NEGATIVE) Urine HCG, Qual Urine Opiates Screen Negative (NEGATIVE) Ur Oxycodone Screen Negative (NEGATIVE) Urine Methadone Screen Negative (NEGATIVE) Ur Barbiturates Screen Negative (NEGATIVE) U Tricyclic Antidepress Negative (NEGATIVE) Ur Phencyclidine Scrn Negative (NEGATIVE) Ur Amphetamine Screen Negative (NEGATIVE) U Methamphetamines Scrn Negative (NEGATIVE) Urine MDMA Screen Negative (NEGATIVE) U Benzodiazepines Scrn Negative (NEGATIVE) Urine Cocaine Screen Negative (NEGATIVE) U Marijuana (THC) Screen Negative (NEGATIVE) Ethyl Alcohol (0) mg/dL Result Diagrams: 04/04/20 12:27 04/04/20 12:27 - Problem List (1) Diabetes SNOMED Code(s): 55026973 ICD Code: E11.9 - TYPE 2 DIABETES MELLITUS WITHOUT COMPLICATIONS Status: Acute Current Visit: Yes (2) Cellulitis SNOMED Code(s): 892395965 ICD Code: L03.90 - CELLULITIS, UNSPECIFIED Status: Acute Current Visit: Yes Qualifiers: Site of cellulitis: extremity Site of cellulitis of extremity: lower extremity Laterality: left Qualified Code(s): L03.116 - Cellulitis of left lower limb Problem List Initiated/Reviewed/Updated: Yes Orders Last 24hrs: Active Orders 24 hr Category Date Time Status Admission Diagnosis [ADT] Stat ADT 04/04/20 13:41 Ordered Admission Status [Patient Status] [ADT] Routine ADT 04/04/20 13:41 Active Antiembolic Devices [RC] PER UNIT ROUTINE Care 04/04/20 15:11 Ordered Glucose [Blood Glucose Check, Bedside] [RC] QIDACANDBED Care 04/04/20 15:06 Ordered Oxygen Therapy [RC] PRN Care 04/04/20 15:10 Ordered Up With Assistance [RC] ASDIRECTED Care 04/04/20 15:10 Ordered VTE/DVT Education [RC] PER UNIT ROUTINE Care 04/04/20 15:10 Ordered Vital Signs [RC] Q4H Care 04/04/20 15:10 Ordered 2 Gram Sodium Diet [DIET] Diet 04/04/20 Dinner Ordered BASIC METABOLIC PANEL,BMP [CHEM] AM Lab 04/05/20 05:15 Ordered CBC WITH AUTO DIFF [HEME] AM Lab 04/05/20 05:15 Ordered CULTURE BLOOD [BC] Stat Lab 04/04/20 12:27 Received CULTURE BLOOD [BC] Stat Lab 04/04/20 12:48 Received Acetaminophen [Tylenol] Med 04/04/20 15:10 Ordered 650 mg PO Q4H PRN Acetaminophen/HYDROcodone [[place] 325-10 MG] Med 04/04/20 15:10 Ordered 1 tab PO Q4H PRN Amitriptyline [Elavil] Med 04/04/20 21:00 Ordered 50 mg PO BEDTIME Dextrose 50% in Water Med 04/04/20 15:06 Ordered 25 ml IVPUSH Q1H PRN Docusate Sodium [Colace] Med 04/04/20 15:10 Ordered 100 mg PO BID PRN Enoxaparin [Lovenox] Med 04/05/20 09:00 Ordered 40 mg SUBCUT DAILY Furosemide [Lasix] Med 04/04/20 21:00 Ordered 20 mg PO BEDTIME Ibuprofen [Motrin] Med 04/04/20 15:10 Ordered 600 mg PO Q6H PRN Insulin Aspart [Insulin Aspart Flexpen] Med 04/04/20 17:00 Ordered 40 units SQ TIDMEALS Insulin Glarg,Human.Rec.Analog [LantUS] Med 04/04/20 21:00 Ordered 50 unit SUBCUT BID Insulin Lispro [HumaLOG] Med 04/04/20 16:00 Ordered See Protocol SUBCUT ACBED Multivitamin [Multi-Vitamin Daily] Med 04/05/20 09:00 Ordered 1 tab PO DAILY Ondansetron [Zofran ODT] Med 04/04/20 15:10 Ordered 4 mg PO Q6H PRN Ondansetron [Zofran] Med 04/04/20 15:10 Ordered 4 mg IVPUSH Q6H PRN Pantoprazole [ProTONIX] Med 04/05/20 09:00 Ordered 40 mg PO DAILY Pharmacy to Dose - Vancomycin Med 04/04/20 15:15 Ordered 1 dose .XX ASDIRECTED Piperacillin/Tazobactam [Zosyn] 3.375 gm Med 04/04/20 15:15 Ordered Sodium Chloride 0.9% [Normal Saline] 100 ml IV Q6H Potassium Chloride [Klor-Con 10] Med 04/05/20 09:00 Ordered 10 meq PO DAILY Temazepam [Restoril] Med 04/04/20 15:10 Ordered 15 mg PO BEDTIME PRN VANCOmycin/Water for INJ (PEG) [VANCOmycin 1.5 GM/300 Med 04/04/20 16:00 Active ML Premix] 1.5 gm Premix Bag 1 bag IV Q12H atorvaSTATin [Lipitor] Med 04/05/20 09:00 Ordered 10 mg PO DAILY glipiZIDE [Glucotrol XL] Med 04/05/20 09:00 Ordered 10 mg PO DAILY hydroCHLOROthiazide Med 04/05/20 09:00 Ordered 12.5 mg PO DAILY lisinopriL [Prinivil] Med 04/05/20 09:00 Ordered 5 mg PO DAILY Antiembolic Hose [OM.PC] Per Unit Routine Oth 04/04/20 15:11 Ordered Blood Culture x2 Reflex Set [OM.PC] Stat Oth 04/04/20 12:30 Ordered Resuscitation Status Routine Resus Stat 04/04/20 15:10 Ordered Medication Orders Acetaminophen (Tylenol) 650 mg PO Q4H PRN PRN Reason: Pain (Mild 1-3)/fever Hydrocodone Bitart/Acetaminophen ([place] 325-10 Mg) 1 tab PO Q4H PRN PRN Reason: Pain (severe 7-10) Atorvastatin Calcium (Lipitor) 10 mg PO DAILY PAUL Dextrose/Water (Dextrose 50% In Water) 25 ml IVPUSH Q1H PRN PRN Reason: blood sugar <70 Docusate Sodium (Colace) 100 mg PO BID PRN PRN Reason: Constipation Enoxaparin Sodium (Lovenox) 40 mg SUBCUT DAILY [facility] Furosemide (Lasix) 20 mg PO BEDTIME PAUL Glipizide (Glucotrol Xl) 10 mg PO DAILY [facility] Hydrochlorothiazide (Hydrochlorothiazide) 12.5 mg PO DAILY [facility] Piperacillin Sod/Tazobactam (Sod 3.375 gm/ Sodium Chloride) 100 mls @ 200 mls/hr IV Q6HR PAUL Vancomycin HCl 1.5 gm/ Premix 300 mls @ 200 mls/hr IV Q12H PAUL Ibuprofen (Motrin) 600 mg PO Q6H PRN PRN Reason: Pain (moderate 4-6) Insulin Glargine (Lantus) 50 unit SUBCUT BID [facility] Insulin Human Lispro (Humalog) 0 unit SUBCUT QIDACANDBED PAUL; Protocol Lisinopril (Prinivil) 5 mg PO DAILY [facility] Non-Formulary Medication (Amitriptyline [Elavil]) 50 mg PO BEDTIME PAUL Non-Formulary Medication (Insulin Aspart [Insulin Aspart Flexpen]) 40 units SQ TIDMEALS [facility] Non-Formulary Medication (Multivitamin [Multi-Vitamin Daily]) 1 tab PO DAILY [facility] Ondansetron HCl (Zofran Odt) 4 mg PO Q6H PRN PRN Reason: nausea, able to take PO Ondansetron HCl (Zofran) 4 mg IVPUSH Q6H PRN PRN Reason: Nausea/Vomiting Pantoprazole Sodium (Protonix) 40 mg PO DAILY [facility] Potassium Chloride (Klor-Con 10) 10 meq PO DAILY [facility] Temazepam (Restoril) 15 mg PO BEDTIME PRN PRN Reason: Sleep Vancomycin HCl (Pharmacy To Dose - Vancomycin) 0 dose .XX ASDIRECTED PAUL
[2020-04-04] MEDS: Insulin Lispro 100 Units/ML 3 ML Vial SUBCUT SCH ×2 (17:12→21:58)
[2020-04-04] MEDS: Piperacillin/Tazobactam 3.375 GM in Sodium Chloride 0.9% 100 ML IV SCH (17:27)
[2020-04-04] MEDS: Acetaminophen/HYDROcodone 325-10 MG Tab PO PRN (17:29)
[2020-04-04] MEDS: Ibuprofen 600 MG Tab PO PRN (17:29)
[2020-04-04] MEDS ORDERED: Temazepam 15 MG Cap PO PRN (21:00)
[2020-04-04] MEDS: Amitriptyline 25 MG Tab PO SCH (21:58)
[2020-04-04] MEDS: Ondansetron 4 MG Tab.DIS PO PRN (22:09)
[2020-04-04] MEDS: Insulin Glarg,Human.Rec.Analog 100 Unit/ML SUBCUT SCH (22:09)
[2020-04-05] MEDS: Piperacillin/Tazobactam 3.375 GM in Sodium Chloride 0.9% 100 ML IV SCH ×4 (00:19→18:24)
[2020-04-05] MEDS: Acetaminophen 325 MG Tab PO PRN ×2 (00:31→17:19)
[2020-04-05] MEDS: Ibuprofen 600 MG Tab PO PRN ×2 (02:07→14:10)
[2020-04-05] MEDS: Pantoprazole 40 MG Tab.CR PO SCH (05:46)
[2020-04-05 07:22] LABS: ANION GAP 11.8 mEq/L (7-13)
[2020-04-05] MEDS: Hydrochlorothiazide 25 MG Tab PO SCH (09:01)
[2020-04-05] MEDS: glipiZIDE 5 MG Tab.ER PO SCH (09:01)
[2020-04-05] MEDS: Potassium Chloride 10 MEQ Tab.ER PO SCH (09:02)
[2020-04-05] MEDS: Furosemide 20 MG Tab PO SCH (09:03)
[2020-04-05] MEDS: atorvaSTATin 10 MG Tab PO SCH (09:03)
[2020-04-05] MEDS: Enoxaparin 40 MG/0.4 ML Syringe SUBCUT SCH (09:03)
[2020-04-05] MEDS: Lisinopril 5 MG Tab PO SCH (09:04)
[2020-04-05] MEDS: Multivitamins,Therapeutic Tab PO SCH (09:04)
[2020-04-05] MEDS: Insulin Lispro 100 Units/ML 3 ML Vial SUBCUT SCH ×4 (09:16→22:05)
[2020-04-05] MEDS: Insulin Glarg,Human.Rec.Analog 100 Unit/ML SUBCUT SCH ×2 (09:21→22:06)
[2020-04-05] MEDS: Acetaminophen/HYDROcodone 325-10 MG Tab PO PRN ×2 (09:21→17:19)
--- NOTE | 2020-04-05 12:23 | PCM.PN ---
- General Info Date of Service: 04/05/20 Admission Dx/Problem (Free Text): Admission Diagnosis/Problem Admission Diagnosis/Problem Cellulitis of Left LE Subjective Update: pt was seen in room , not feeling well, has no appetite and still feeling tired and sleepy Functional Status: Reports: Pain Controlled, Tolerating Diet, Urinating - Review of Systems General: Reports: Weakness, Malaise, Appetite (poor). Denies: Fever, Chills HEENT: Denies: Headaches, Sinus Congestion, Sore Throat, Visual Changes Pulmonary: Denies: Shortness of Breath, Cough, Sputum, Wheezing Cardiovascular: Denies: Chest Pain, Palpitations, Edema Gastrointestinal: Denies: Abdominal Pain, Nausea, Vomiting Genitourinary: Denies: Dysuria, Burning, Urgency Musculoskeletal: Denies: Neck Pain, Hand Pain, Back Pain, Joint Swelling Skin: Denies: Cyanosis, Jaundice Neurological: Denies: Confusion, Dizziness, Headache, Tremors Psychiatric: Denies: Confusion, Anxiety, Agitation - Patient Data Vitals - Most Recent: Last Vital Signs Temp 37.1 C 04/05/20 12:14 Pulse 84 04/05/20 12:14 Resp 20 04/05/20 12:14 BP 116/48 L 04/05/20 12:14 Pulse Ox 97 04/05/20 12:14 Weight - Most Recent: 130.997 kg I&O - Last 24 Hours: Intake & Output 04/04/20 04/05/20 04/05/20 22:59 06:59 14:59 Intake Total 236 884 120 Balance 236 884 120 Lab Results Last 24 Hours: Laboratory Results - last 24 hr 04/04/20 04/04/20 04/04/20 Range/Units 12:27 12:27 12:27 WBC 26.3 H* (5.0-10.0) 10^3/uL RBC 4.82 (4.2-5.4) 10^6/uL Hgb 11.2 L (12.0-16.0) g/dL Hct 35.5 L (37.0-47.0) % MCV 73.7 L (80-100) fL MCH 23.2 L (27.0-34.0) pg MCHC 31.5 L (33.0-35.0) g/dL Plt Count 254 (150-450) 10^3/uL Neut % (Auto) 92.4 H (42.2-75.2) % Lymph % (Auto) 3.2 L (20.5-50.1) % [place] % (Auto) 4.3 (2-8) % Eos % (Auto) 0.0 L (1.0-3.0) % Baso % (Auto) 0.1 (0.0-1.0) % D-Dimer, Quantitative (0-400) ng/mL Sodium 137 (136-145) mmol/L Potassium 3.2 L (3.5-5.1) mmol/L Chloride 98 (98-107) mmol/L Carbon Dioxide 28 (21-32) mmol/L Anion Gap 14.2 H (7-13) mEq/L BUN 19 H (7-18) mg/dL Creatinine 1.19 H (0.55-1.02) mg/dL Est Cr Clr Drug Dosing 63.05 mL/min Estimated GFR (MDRD) 49 BUN/Creatinine Ratio 16.0 (No establ ref range) Glucose 150 H (74-99) mg/dL POC Glucose (70-105) mg/dl Lactic Acid 1.9 (0.4-2.0) mmol/L Calcium 8.8 (8.5-10.1) mg/dL Total Bilirubin 0.8 (0.2-1.0) mg/dL AST 22 (15-37) U/L ALT 34 (14-59) U/L Alkaline Phosphatase 82 (46-116) U/L Total Protein 8.0 (6.4-8.2) g/dL Albumin 3.8 (3.4-5.0) g/dL Globulin 4.2 Albumin/Globulin Ratio 0.9 Urine Color (YELLOW) Urine Appearance (CLEAR) Urine pH (5.0-9.0) Ur Specific [place] (1.005-1.030) Urine Protein (NEGATIVE) Urine Glucose (UA) (NEGATIVE) Urine Ketones (NEGATIVE) Urine Occult Blood (NEGATIVE) Urine Nitrite (NEGATIVE) Urine Bilirubin (NEGATIVE) Urine Urobilinogen (0.2-1.0) mg/dL Ur Leukocyte Esterase (NEGATIVE) Urine HCG, Qual Urine Opiates Screen (NEGATIVE) Ur Oxycodone Screen (NEGATIVE) Urine Methadone Screen (NEGATIVE) Ur Barbiturates Screen (NEGATIVE) U Tricyclic Antidepress (NEGATIVE) Ur Phencyclidine Scrn (NEGATIVE) Ur Amphetamine Screen (NEGATIVE) U Methamphetamines Scrn (NEGATIVE) Urine MDMA Screen (NEGATIVE) U Benzodiazepines Scrn (NEGATIVE) Urine Cocaine Screen (NEGATIVE) U Marijuana (THC) Screen (NEGATIVE) Ethyl Alcohol < 3 (0) mg/dL 04/04/20 04/04/20 04/04/20 Range/Units 12:27 12:47 12:47 WBC (5.0-10.0) 10^3/uL RBC (4.2-5.4) 10^6/uL Hgb (12.0-16.0) g/dL Hct (37.0-47.0) % MCV (80-100) fL MCH (27.0-34.0) pg MCHC (33.0-35.0) g/dL Plt Count (150-450) 10^3/uL Neut % (Auto) (42.2-75.2) % Lymph % (Auto) (20.5-50.1) % [place] % (Auto) (2-8) % Eos % (Auto) (1.0-3.0) % Baso % (Auto) (0.0-1.0) % D-Dimer, Quantitative 1110 H (0-400) ng/mL Sodium (136-145) mmol/L Potassium (3.5-5.1) mmol/L Chloride (98-107) mmol/L Carbon Dioxide (21-32) mmol/L Anion Gap (7-13) mEq/L BUN (7-18) mg/dL Creatinine (0.55-1.02) mg/dL Est Cr Clr Drug Dosing mL/min Estimated GFR (MDRD) BUN/Creatinine Ratio (No establ ref range) Glucose (74-99) mg/dL POC Glucose (70-105) mg/dl Lactic Acid (0.4-2.0) mmol/L Calcium (8.5-10.1) mg/dL Total Bilirubin (0.2-1.0) mg/dL AST (15-37) U/L ALT (14-59) U/L Alkaline Phosphatase (46-116) U/L Total Protein (6.4-8.2) g/dL Albumin (3.4-5.0) g/dL Globulin Albumin/Globulin Ratio Urine Color Yellow (YELLOW) Urine Appearance Clear (CLEAR) Urine pH 5.0 (5.0-9.0) Ur Specific [place] 1.015 (1.005-1.030) Urine Protein Negative (NEGATIVE) Urine Glucose (UA) Negative (NEGATIVE) Urine Ketones Negative (NEGATIVE) Urine Occult Blood Negative (NEGATIVE) Urine Nitrite Negative (NEGATIVE) Urine Bilirubin Negative (NEGATIVE) Urine Urobilinogen 0.2 (0.2-1.0) mg/dL Ur Leukocyte Esterase Negative (NEGATIVE) Urine HCG, Qual Negative Urine Opiates Screen (NEGATIVE) Ur Oxycodone Screen (NEGATIVE) Urine Methadone Screen (NEGATIVE) Ur Barbiturates Screen (NEGATIVE) U Tricyclic Antidepress (NEGATIVE) Ur Phencyclidine Scrn (NEGATIVE) Ur Amphetamine Screen (NEGATIVE) U Methamphetamines Scrn (NEGATIVE) Urine MDMA Screen (NEGATIVE) U Benzodiazepines Scrn (NEGATIVE) Urine Cocaine Screen (NEGATIVE) U Marijuana (THC) Screen (NEGATIVE) Ethyl Alcohol (0) mg/dL 04/04/20 04/04/20 04/04/20 Range/Units 12:47 17:10 21:24 WBC (5.0-10.0) 10^3/uL RBC (4.2-5.4) 10^6/uL Hgb (12.0-16.0) g/dL Hct (37.0-47.0) % MCV (80-100) fL MCH (27.0-34.0) pg MCHC (33.0-35.0) g/dL Plt Count (150-450) 10^3/uL Neut % (Auto) (42.2-75.2) % Lymph % (Auto) (20.5-50.1) % [place] % (Auto) (2-8) % Eos % (Auto) (1.0-3.0) % Baso % (Auto) (0.0-1.0) % D-Dimer, Quantitative (0-400) ng/mL Sodium (136-145) mmol/L Potassium (3.5-5.1) mmol/L Chloride (98-107) mmol/L Carbon Dioxide (21-32) mmol/L Anion Gap (7-13) mEq/L BUN (7-18) mg/dL Creatinine (0.55-1.02) mg/dL Est Cr Clr Drug Dosing mL/min Estimated GFR (MDRD) BUN/Creatinine Ratio (No establ ref range) Glucose (74-99) mg/dL POC Glucose 140 H 130 H (70-105) mg/dl Lactic Acid (0.4-2.0) mmol/L Calcium (8.5-10.1) mg/dL Total Bilirubin (0.2-1.0) mg/dL AST (15-37) U/L ALT (14-59) U/L Alkaline Phosphatase (46-116) U/L Total Protein (6.4-8.2) g/dL Albumin (3.4-5.0) g/dL Globulin Albumin/Globulin Ratio Urine Color (YELLOW) Urine Appearance (CLEAR) Urine pH (5.0-9.0) Ur Specific [place] (1.005-1.030) Urine Protein (NEGATIVE) Urine Glucose (UA) (NEGATIVE) Urine Ketones (NEGATIVE) Urine Occult Blood (NEGATIVE) Urine Nitrite (NEGATIVE) Urine Bilirubin (NEGATIVE) Urine Urobilinogen (0.2-1.0) mg/dL Ur Leukocyte Esterase (NEGATIVE) Urine HCG, Qual Urine Opiates Screen Negative (NEGATIVE) Ur Oxycodone Screen Negative (NEGATIVE) Urine Methadone Screen Negative (NEGATIVE) Ur Barbiturates Screen Negative (NEGATIVE) U Tricyclic Antidepress Negative (NEGATIVE) Ur Phencyclidine Scrn Negative (NEGATIVE) Ur Amphetamine Screen Negative (NEGATIVE) U Methamphetamines Scrn Negative (NEGATIVE) Urine MDMA Screen Negative (NEGATIVE) U Benzodiazepines Scrn Negative (NEGATIVE) Urine Cocaine Screen Negative (NEGATIVE) U Marijuana (THC) Screen Negative (NEGATIVE) Ethyl Alcohol (0) mg/dL 04/05/20 04/05/20 04/05/20 Range/Units 06:40 06:40 08:11 WBC 12.0 H (5.0-10.0) 10^3/uL RBC 4.19 L (4.2-5.4) 10^6/uL Hgb 9.8 L (12.0-16.0) g/dL Hct 31.9 L (37.0-47.0) % MCV 76.1 L (80-100) fL MCH 23.4 L (27.0-34.0) pg MCHC 30.7 L (33.0-35.0) g/dL Plt Count 191 (150-450) 10^3/uL Neut % (Auto) 87.1 H (42.2-75.2) % Lymph % (Auto) 9.5 L (20.5-50.1) % [place] % (Auto) 3.2 (2-8) % Eos % (Auto) 0.0 L (1.0-3.0) % Baso % (Auto) 0.2 (0.0-1.0) % D-Dimer, Quantitative (0-400) ng/mL Sodium 139 (136-145) mmol/L Potassium 2.8 L (3.5-5.1) mmol/L Chloride 102 (98-107) mmol/L Carbon Dioxide 28 (21-32) mmol/L Anion Gap 11.8 (7-13) mEq/L BUN 22 H (7-18) mg/dL Creatinine 1.19 H (0.55-1.02) mg/dL Est Cr Clr Drug Dosing 63.05 mL/min Estimated GFR (MDRD) 49 BUN/Creatinine Ratio (No establ ref range) Glucose 145 H (74-99) mg/dL POC Glucose 159 H (70-105) mg/dl Lactic Acid (0.4-2.0) mmol/L Calcium 8.1 L (8.5-10.1) mg/dL Total Bilirubin (0.2-1.0) mg/dL AST (15-37) U/L ALT (14-59) U/L Alkaline Phosphatase (46-116) U/L Total Protein (6.4-8.2) g/dL Albumin (3.4-5.0) g/dL Globulin Albumin/Globulin Ratio Urine Color (YELLOW) Urine Appearance (CLEAR) Urine pH (5.0-9.0) Ur Specific [place] (1.005-1.030) Urine Protein (NEGATIVE) Urine Glucose (UA) (NEGATIVE) Urine Ketones (NEGATIVE) Urine Occult Blood (NEGATIVE) Urine Nitrite (NEGATIVE) Urine Bilirubin (NEGATIVE) Urine Urobilinogen (0.2-1.0) mg/dL Ur Leukocyte Esterase (NEGATIVE) Urine HCG, Qual Urine Opiates Screen (NEGATIVE) Ur Oxycodone Screen (NEGATIVE) Urine Methadone Screen (NEGATIVE) Ur Barbiturates Screen (NEGATIVE) U Tricyclic Antidepress (NEGATIVE) Ur Phencyclidine Scrn (NEGATIVE) Ur Amphetamine Screen (NEGATIVE) U Methamphetamines Scrn (NEGATIVE) Urine MDMA Screen (NEGATIVE) U Benzodiazepines Scrn (NEGATIVE) Urine Cocaine Screen (NEGATIVE) U Marijuana (THC) Screen (NEGATIVE) Ethyl Alcohol (0) mg/dL 04/05/20 Range/Units 11:48 WBC (5.0-10.0) 10^3/uL RBC (4.2-5.4) 10^6/uL Hgb (12.0-16.0) g/dL Hct (37.0-47.0) % MCV (80-100) fL MCH (27.0-34.0) pg MCHC (33.0-35.0) g/dL Plt Count (150-450) 10^3/uL Neut % (Auto) (42.2-75.2) % Lymph % (Auto) (20.5-50.1) % [place] % (Auto) (2-8) % Eos % (Auto) (1.0-3.0) % Baso % (Auto) (0.0-1.0) % D-Dimer, Quantitative (0-400) ng/mL Sodium (136-145) mmol/L Potassium (3.5-5.1) mmol/L Chloride (98-107) mmol/L Carbon Dioxide (21-32) mmol/L Anion Gap (7-13) mEq/L BUN (7-18) mg/dL Creatinine (0.55-1.02) mg/dL Est Cr Clr Drug Dosing mL/min Estimated GFR (MDRD) BUN/Creatinine Ratio (No establ ref range) Glucose (74-99) mg/dL POC Glucose 243 H (70-105) mg/dl Lactic Acid (0.4-2.0) mmol/L Calcium (8.5-10.1) mg/dL Total Bilirubin (0.2-1.0) mg/dL AST (15-37) U/L ALT (14-59) U/L Alkaline Phosphatase (46-116) U/L Total Protein (6.4-8.2) g/dL Albumin (3.4-5.0) g/dL Globulin Albumin/Globulin Ratio Urine Color (YELLOW) Urine Appearance (CLEAR) Urine pH (5.0-9.0) Ur Specific [place] (1.005-1.030) Urine Protein (NEGATIVE) Urine Glucose (UA) (NEGATIVE) Urine Ketones (NEGATIVE) Urine Occult Blood (NEGATIVE) Urine Nitrite (NEGATIVE) Urine Bilirubin (NEGATIVE) Urine Urobilinogen (0.2-1.0) mg/dL Ur Leukocyte Esterase (NEGATIVE) Urine HCG, Qual Urine Opiates Screen (NEGATIVE) Ur Oxycodone Screen (NEGATIVE) Urine Methadone Screen (NEGATIVE) Ur Barbiturates Screen (NEGATIVE) U Tricyclic Antidepress (NEGATIVE) Ur Phencyclidine Scrn (NEGATIVE) Ur Amphetamine Screen (NEGATIVE) U Methamphetamines Scrn (NEGATIVE) Urine MDMA Screen (NEGATIVE) U Benzodiazepines Scrn (NEGATIVE) Urine Cocaine Screen (NEGATIVE) U Marijuana (THC) Screen (NEGATIVE) Ethyl Alcohol (0) mg/dL Med Orders - Current: Current Medications Acetaminophen (Tylenol) 650 mg PO Q4H PRN PRN Reason: Pain (Mild 1-3)/fever Last Admin: 04/05/20 00:31 Dose: 650 mg Documented by: Hydrocodone Bitart/Acetaminophen ([place] 325-10 Mg) 1 tab PO Q4H PRN PRN Reason: Pain (severe 7-10) Last Admin: 04/05/20 09:21 Dose: 1 tab Documented by: Amitriptyline HCl (Elavil) 50 mg PO BEDTIME [facility] Last Admin: 04/04/20 21:58 Dose: 50 mg Documented by: Atorvastatin Calcium (Lipitor) 10 mg PO DAILY [facility] Last Admin: 04/05/20 09:03 Dose: 10 mg Documented by: Dextrose/Water (Dextrose 50% In Water) 25 ml IVPUSH Q1H PRN PRN Reason: blood sugar <70 Docusate Sodium (Colace) 100 mg PO BID PRN PRN Reason: Constipation Enoxaparin Sodium (Lovenox) 40 mg SUBCUT DAILY [facility] Last Admin: 04/05/20 09:03 Dose: 40 mg Documented by: Furosemide (Lasix) 20 mg PO DAILY [facility] Last Admin: 04/05/20 09:03 Dose: 20 mg Documented by: Glipizide (Glucotrol Xl) 10 mg PO DAILY [facility] Last Admin: 04/05/20 09:01 Dose: 10 mg Documented by: Hydrochlorothiazide (Hydrochlorothiazide) 12.5 mg PO DAILY [facility] Last Admin: 04/05/20 09:01 Dose: 12.5 mg Documented by: Piperacillin Sod/Tazobactam (Sod 3.375 gm/ Sodium Chloride) 100 mls @ 200 mls/hr IV Q6HR [facility] Last Infusion: 04/05/20 06:19 Dose: Infused Documented by: Vancomycin HCl 1.5 gm/ Premix 300 mls @ 200 mls/hr IV Q12H [facility] Last Infusion: 04/05/20 05:15 Dose: Infused Documented by: Ibuprofen (Motrin) 600 mg PO Q6H PRN PRN Reason: Pain (moderate 4-6) Last Admin: 04/05/20 02:07 Dose: 600 mg Documented by: Insulin Glargine (Lantus) 50 unit SUBCUT BID [facility] Last Admin: 04/05/20 09:21 Dose: 50 units Documented by: Insulin Human Lispro (Humalog) 0 unit SUBCUT QIDACANDBED [facility]; Protocol Last Admin: 04/05/20 09:16 Dose: Not Given Documented by: Lisinopril (Prinivil) 5 mg PO DAILY [facility] Last Admin: 04/05/20 09:04 Dose: 5 mg Documented by: Multivitamins (Thera) 1 each PO DAILY [facility] Last Admin: 04/05/20 09:04 Dose: 1 each Documented by: Non-Formulary Medication (Insulin Aspart [Insulin Aspart Flexpen]) 40 units SQ TIDMEALS [facility] Ondansetron HCl (Zofran Odt) 4 mg PO Q6H PRN PRN Reason: nausea, able to take PO Last Admin: 04/04/20 22:09 Dose: 4 mg Documented by: Ondansetron HCl (Zofran) 4 mg IVPUSH Q6H PRN PRN Reason: Nausea/Vomiting Pantoprazole Sodium (Protonix) 40 mg PO ACBREAKFAST [facility] Last Admin: 04/05/20 05:46 Dose: 40 mg Documented by: Potassium Chloride (Klor-Con 10) 10 meq PO DAILY [facility] Last Admin: 04/05/20 09:02 Dose: 10 meq Documented by: Temazepam (Restoril) 15 mg PO BEDTIME PRN PRN Reason: Sleep Vancomycin HCl (Pharmacy To Dose - Vancomycin) 0 dose .XX ASDIRECTED [facility] Discontinued Medications Sodium Chloride (Normal Saline) 1,000 mls @ 999 mls/hr IV .BOLUS ONE Stop: 04/04/20 13:43 Last Admin: 04/04/20 12:55 Dose: 999 mls/hr Documented by: Vancomycin HCl 2 gm/ Sodium (Chloride) 500 mls @ 250 mls/hr IV ONETIME ONE Stop: 04/04/20 15:22 Last Admin: 04/04/20 14:01 Dose: 250 mls/hr Documented by: Morphine Sulfate (Morphine) 2 mg IVPUSH ONETIME ONE Stop: 04/04/20 13:47 Last Admin: 04/04/20 13:55 Dose: 2 mg Documented by: - Exam Quality Assessment: DVT Prophylaxis. No: Supplemental Oxygen, Urine Catheter General: Alert, Oriented, Cooperative, No Acute Distress HEENT: Pupils Equal, Pupils Reactive, EOMI, Mucous Membr. Moist/[place] Neck: Supple, No JVD, No Thyromegaly Lungs: Clear to Auscultation, Normal Respiratory Effort. No: Crackles, Wheezing Cardiovascular: Regular Rate, Regular Rhythm, No Murmurs GI/Abdominal Exam: Normal Bowel Sounds, Soft, Non-Tender, No Distention (Female) Exam: Deferred Back Exam: Normal Inspection, Full Range of Motion Extremities: Normal Inspection, No Pedal Edema Skin: Warm, Dry, Intact Neurological: No New Focal Deficit Psy/Mental Status: Alert, Normal Affect, Normal Mood Sepsis Event Note - Evaluation Sepsis Screening Result: No Definite Risk - Focused Exam Vital Signs: Vital Signs Temp Temp Pulse Resp BP BP Pulse Ox 04/05/20 12:14 37.1 C 84 20 116/48 L 97 04/05/20 09:04 120/52 L 04/05/20 08:00 37.2 C 86 20 118/47 L 97 04/05/20 04:50 36.7 C 84 20 120/52 L 94 L 04/05/20 03:25 36.4 C 04/05/20 03:07 36.4 C 04/05/20 02:07 38.6 C H 04/05/20 02:05 38.6 C H - Problem List Review Problem List Initiated/Reviewed/Updated: Yes - Plan Plan:: Ms. Mary Rodriguez,44 y.o.femalewith medical history significant for hypertension, dyslipidemia, diabetes, IBS, and GERD is admitted for e left lower extremity warm and redness ( Cellulitis) . Patient was started on vancomycin and Zosyn and Area of redness has not decreased since admission Impression and Plan: 1. Left LE cellulitis: This is recurrent, pt had cellulitis of the same Left LE about a year ago and was admitted to [facility] - will follow blood cultures -Will continue empiric treatment with Zosyn and vancomycin - IV fluids with electrolyte replacement 2. Diabetes Ii: Poorly controlled - will continue to Hold metformin - Continue glipizide - Continue long and short-acting insulin - Supplemental insulin and hypoglycemia treatment as needed 3. Hypertension: BP acceptable and will continue JHCTZ and lisinopril 4. Hypokalemia: This secondary to poor oral Intake and will give potassim chloride 40 meq IV X 1 now Recheck after the infusion -BMP in AM 5. DVT prophylaxis with Lovenox
[2020-04-05] MEDS ORDERED: Potassium Chloride 10 MEQ in Premix Bag 4 BAG IV ONE (12:32)
[2020-04-05] MEDS: Potassium Chloride 10 MEQ in Premix Bag 1 BAG IV SCH ×6 (14:02→23:00)
[2020-04-05] MEDS: INSULIN ASPART 40 UNIT SQ SCH (18:38)
[2020-04-05] MEDS: Amitriptyline 25 MG Tab PO SCH (20:20)
[2020-04-06] MEDS: Piperacillin/Tazobactam 3.375 GM in Sodium Chloride 0.9% 100 ML IV SCH ×5 (00:23→23:18)
[2020-04-06] MEDS: Acetaminophen/HYDROcodone 325-10 MG Tab PO PRN ×3 (04:18→20:02)
[2020-04-06] MEDS: Pantoprazole 40 MG Tab.CR PO SCH (05:30)
[2020-04-06 07:05] LABS: ANION GAP 9.7 mEq/L (7-13)
[2020-04-06] MEDS: Insulin Lispro 100 Units/ML 3 ML Vial SUBCUT SCH ×4 (08:10→21:55)
[2020-04-06] MEDS: Lisinopril 5 MG Tab PO SCH (08:29)
[2020-04-06] MEDS: Potassium Chloride 10 MEQ Tab.ER PO SCH (08:30)
[2020-04-06] MEDS: glipiZIDE 5 MG Tab.ER PO SCH (08:30)
[2020-04-06] MEDS: Furosemide 20 MG Tab PO SCH (08:31)
[2020-04-06] MEDS: Hydrochlorothiazide 25 MG Tab PO SCH (08:31)
[2020-04-06] MEDS: Multivitamins,Therapeutic Tab PO SCH (08:31)
[2020-04-06] MEDS: atorvaSTATin 10 MG Tab PO SCH (08:31)
[2020-04-06] MEDS: Insulin Glarg,Human.Rec.Analog 100 Unit/ML SUBCUT SCH ×2 (08:33→21:53)
[2020-04-06] MEDS: Enoxaparin 40 MG/0.4 ML Syringe SUBCUT SCH (08:34)
[2020-04-06] MEDS: Ibuprofen 600 MG Tab PO PRN (11:49)
--- NOTE | 2020-04-06 12:35 | PCM.PN ---
- General Info Date of Service: 04/06/20 Admission Dx/Problem (Free Text): Admission Diagnosis/Problem Admission Diagnosis/Problem Cellulitis of Left LE Subjective Update: pt was seen in room , still not feeling well, has no appetite and still feeling tired and sleepy but erythema of her Left LE has improved Functional Status: Reports: Pain Controlled, Tolerating Diet, Ambulating, Urinating - Review of Systems General: Reports: Weakness, Fatigue, Appetite (poor). Denies: Fever, Chills HEENT: Denies: Post Nasal Drip, Sinus Congestion, Sore Throat, Visual Changes Pulmonary: Denies: Shortness of Breath, Cough, Sputum, Wheezing Cardiovascular: Denies: Chest Pain, Edema, Lightheadedness Gastrointestinal: Denies: Abdominal Pain, Decreased Appetite, Difficulty Swallowing, Nausea, Vomiting Genitourinary: Denies: Dysuria, Burning, Flank Pain Musculoskeletal: Denies: Neck Pain, Shoulder Pain, Back Pain Skin: Reports: Rash (in LEft LE ( penaloza)). Denies: Cyanosis, Jaundice, Bruising, Pruritis Neurological: Reports: Weakness. Denies: Confusion, Tremors Psychiatric: Denies: Confusion, Mood Lability, Anxiety - Patient Data Vitals - Most Recent: Last Vital Signs Temp 37.4 C 04/06/20 08:14 Pulse 84 04/06/20 08:14 Resp 20 04/06/20 08:14 BP 132/63 04/06/20 08:29 Pulse Ox 97 04/06/20 08:14 Weight - Most Recent: 130.997 kg I&O - Last 24 Hours: Intake & Output 04/05/20 04/06/20 04/06/20 22:59 06:59 14:59 Intake Total 560 1601 360 Balance 560 1601 360 Lab Results Last 24 Hours: Laboratory Results - last 24 hr 04/05/20 04/05/20 04/06/20 Range/Units 17:03 21:18 06:20 Sodium 138 (136-145) mmol/L Potassium 3.7 (3.5-5.1) mmol/L Chloride 101 (98-107) mmol/L Carbon Dioxide 31 (21-32) mmol/L Anion Gap 9.7 (7-13) mEq/L BUN 15 (7-18) mg/dL Creatinine 1.01 (0.55-1.02) mg/dL Est Cr Clr Drug Dosing 74.28 mL/min Estimated GFR (MDRD) 60 Glucose 124 H (74-99) mg/dL POC Glucose 141 H 92 (70-105) mg/dl Calcium 8.0 L (8.5-10.1) mg/dL 04/06/20 04/06/20 Range/Units 07:49 11:53 Sodium (136-145) mmol/L Potassium (3.5-5.1) mmol/L Chloride (98-107) mmol/L Carbon Dioxide (21-32) mmol/L Anion Gap (7-13) mEq/L BUN (7-18) mg/dL Creatinine (0.55-1.02) mg/dL Est Cr Clr Drug Dosing mL/min Estimated GFR (MDRD) Glucose (74-99) mg/dL POC Glucose 133 H 158 H (70-105) mg/dl Calcium (8.5-10.1) mg/dL Lorenzo Results Last 24 Hours: Microbiology 04/04/20 12:48 Aerobic Blood Culture - Preliminary Blood - Venous - Lab Draw NO GROWTH AFTER 1 DAY Anaerobic Blood Culture - Preliminary NO GROWTH AFTER 1 DAY 04/04/20 12:27 Aerobic Blood Culture - Preliminary Blood - Venous NO GROWTH AFTER 1 DAY Anaerobic Blood Culture - Preliminary NO GROWTH AFTER 1 DAY Med Orders - Current: Current Medications Acetaminophen (Tylenol) 650 mg PO Q4H PRN PRN Reason: Pain (Mild 1-3)/fever Last Admin: 04/05/20 17:19 Dose: 650 mg Documented by: Hydrocodone Bitart/Acetaminophen ([place] 325-10 Mg) 1 tab PO Q4H PRN PRN Reason: Pain (severe 7-10) Last Admin: 04/06/20 08:32 Dose: 1 tab Documented by: Amitriptyline HCl (Elavil) 50 mg PO BEDTIME [facility] Last Admin: 04/05/20 20:20 Dose: 50 mg Documented by: Atorvastatin Calcium (Lipitor) 10 mg PO DAILY [facility] Last Admin: 04/06/20 08:31 Dose: 10 mg Documented by: Dextrose/Water (Dextrose 50% In Water) 25 ml IVPUSH Q1H PRN PRN Reason: blood sugar <70 Docusate Sodium (Colace) 100 mg PO BID PRN PRN Reason: Constipation Enoxaparin Sodium (Lovenox) 40 mg SUBCUT DAILY [facility] Last Admin: 04/06/20 08:34 Dose: 40 mg Documented by: Furosemide (Lasix) 20 mg PO DAILY [facility] Last Admin: 04/06/20 08:31 Dose: 20 mg Documented by: Glipizide (Glucotrol Xl) 10 mg PO DAILY [facility] Last Admin: 04/06/20 08:30 Dose: 10 mg Documented by: Hydrochlorothiazide (Hydrochlorothiazide) 12.5 mg PO DAILY [facility] Last Admin: 04/06/20 08:31 Dose: 12.5 mg Documented by: Piperacillin Sod/Tazobactam (Sod 3.375 gm/ Sodium Chloride) 100 mls @ 200 mls/hr IV Q6HR [facility] Last Infusion: 04/06/20 06:00 Dose: Infused Documented by: Vancomycin HCl 1.5 gm/ Premix 300 mls @ 200 mls/hr IV Q12H [facility] Last Infusion: 04/06/20 05:24 Dose: Infused Documented by: Ibuprofen (Motrin) 600 mg PO Q6H PRN PRN Reason: Pain (moderate 4-6) Last Admin: 04/06/20 11:49 Dose: 600 mg Documented by: Insulin Glargine (Lantus) 50 unit SUBCUT BID [facility] Last Admin: 04/06/20 08:33 Dose: 50 units Documented by: Insulin Human Lispro (Humalog) 0 unit SUBCUT QIDACANDBED [facility]; Protocol Last Admin: 04/06/20 08:10 Dose: Not Given Documented by: Lisinopril (Prinivil) 5 mg PO DAILY [facility] Last Admin: 04/06/20 08:29 Dose: 5 mg Documented by: Multivitamins (Thera) 1 each PO DAILY [facility] Last Admin: 04/06/20 08:31 Dose: 1 each Documented by: Ondansetron HCl (Zofran Odt) 4 mg PO Q6H PRN PRN Reason: nausea, able to take PO Last Admin: 04/04/20 22:09 Dose: 4 mg Documented by: Ondansetron HCl (Zofran) 4 mg IVPUSH Q6H PRN PRN Reason: Nausea/Vomiting Pantoprazole Sodium (Protonix) 40 mg PO ACBREAKFAST [facility] Last Admin: 04/06/20 05:30 Dose: 40 mg Documented by: Potassium Chloride (Klor-Con 10) 10 meq PO DAILY [facility] Last Admin: 04/06/20 08:30 Dose: 10 meq Documented by: Temazepam (Restoril) 15 mg PO BEDTIME PRN PRN Reason: Sleep Vancomycin HCl (Pharmacy To Dose - Vancomycin) 0 dose .XX ASDIRECTED [facility] Discontinued Medications Sodium Chloride (Normal Saline) 1,000 mls @ 999 mls/hr IV .BOLUS ONE Stop: 04/04/20 13:43 Last Admin: 04/04/20 12:55 Dose: 999 mls/hr Documented by: Vancomycin HCl 2 gm/ Sodium (Chloride) 500 mls @ 250 mls/hr IV ONETIME ONE Stop: 04/04/20 15:22 Last Admin: 04/04/20 14:01 Dose: 250 mls/hr Documented by: Potassium Chloride 10 meq/ (Premix) 0 mls @ 100 mls/hr IV ONETIME ONE Stop: 04/05/20 12:33 Last Admin: 04/05/20 18:38 Dose: Not Given Documented by: Potassium Chloride 10 meq/ (Premix) 100 mls @ 100 mls/hr IV Q1H PAUL Stop: 04/05/20 16:44 Last Admin: 04/05/20 23:00 Dose: Not Given Documented by: Potassium Chloride 10 meq/ (Premix) 100 mls @ 100 mls/hr IV Q1H [facility] Stop: 04/05/20 21:59 Last Admin: 04/05/20 21:43 Dose: 100 mls/hr Documented by: Morphine Sulfate (Morphine) 2 mg IVPUSH ONETIME ONE Stop: 04/04/20 13:47 Last Admin: 04/04/20 13:55 Dose: 2 mg Documented by: Non-Formulary Medication (Insulin Aspart [Insulin Aspart Flexpen]) 40 units SQ TIDMEALS [facility] Last Admin: 04/05/20 18:38 Dose: Not Given Documented by: - Exam Quality Assessment: DVT Prophylaxis. No: Supplemental Oxygen, Central Line/PICC, Urine Catheter General: Alert, Oriented, Cooperative, No Acute Distress HEENT: Pupils Equal, EOMI, Mucous Membr. Moist/[place] Neck: Supple, No JVD, No Thyromegaly Lungs: Clear to Auscultation, Normal Respiratory Effort. No: Crackles, Wheezing Cardiovascular: Regular Rate, Regular Rhythm, No Murmurs GI/Abdominal Exam: Normal Bowel Sounds, Soft, Non-Tender. No: Guarding, Rigid, Rebound (Female) Exam: Deferred Back Exam: Normal Inspection Extremities: Normal Inspection, No Pedal Edema Skin: Warm, Dry, Intact Neurological: No New Focal Deficit Psy/Mental Status: Alert, Normal Affect, Normal Mood Sepsis Event Note - Evaluation Sepsis Screening Result: No Definite Risk - Focused Exam Vital Signs: Vital Signs Temp Pulse Resp BP BP Pulse Ox 04/06/20 08:29 132/63 04/06/20 08:14 37.4 C 84 20 132/63 97 04/06/20 04:00 37.2 C 20 - Problem List Review Problem List Initiated/Reviewed/Updated: Yes - Plan Plan:: Ms. Mary Rodriguez,44 y.o.femalewith medical history significant for hypertension, dyslipidemia, diabetes, IBS, and GERD is admitted for e left lower extremity warm and redness ( Cellulitis) . Patient was started on vancomycin and Zosyn and Area of redness has not decreased since admission Impression and Plan: 1. Left LE cellulitis: This is recurrent, pt had cellulitis of the same Left LE about a year ago and was admitted to [facility] - will follow blood cultures ( showing no growth in 2 days) -Will continue empiric treatment with Zosyn and vancomycin 2. Diabetes Ii: Poorly controlled - will continue to Hold metformin - Continue glipizide - Continue long and short-acting insulin - Supplemental insulin and hypoglycemia treatment as needed 3. Hypertension: BP acceptable and will continue HCTZ and lisinopril 4. Hypokalemia: This secondary to poor oral Intake and has received potassim chloride 40 meq IV X 1 on 04/05/20 -Will continue potassium chloride 10 meq PO daily Recheck potassium is acceptable -BMP in AM 5. DVT prophylaxis with Lovenox
[2020-04-06] MEDS: Sodium Chloride 0.9% 10 ML Syringe FLUSH PRN ×5 (16:06→23:53)
[2020-04-06] MEDS: Amitriptyline 25 MG Tab PO SCH (20:02)
[2020-04-07] MEDS: Sodium Chloride 0.9% 10 ML Syringe FLUSH PRN ×3 (01:26→23:34)
[2020-04-07] MEDS: Piperacillin/Tazobactam 3.375 GM in Sodium Chloride 0.9% 100 ML IV SCH ×4 (05:36→23:35)
[2020-04-07] MEDS: Acetaminophen/HYDROcodone 325-10 MG Tab PO PRN ×2 (05:44→19:54)
[2020-04-07] MEDS: Acetaminophen 325 MG Tab PO PRN (05:45)
[2020-04-07] MEDS: Pantoprazole 40 MG Tab.CR PO SCH (05:47)
[2020-04-07 06:56] LABS: ANION GAP 11.4 mEq/L (7-13); CHLORIDE,CL 98 mmol/L (98-107); SODIUM,NA 134 mmol/L (136-145)
[2020-04-07] MEDS: INSULIN ASPART 40 UNIT SQ SCH (08:40)
[2020-04-07] MEDS: Insulin Lispro 100 Units/ML 3 ML Vial SUBCUT SCH ×4 (08:44→21:54)
[2020-04-07] MEDS: glipiZIDE 5 MG Tab.ER PO SCH (09:37)
[2020-04-07] MEDS: Hydrochlorothiazide 25 MG Tab PO SCH (09:38)
[2020-04-07] MEDS: Furosemide 20 MG Tab PO SCH (09:39)
[2020-04-07] MEDS: Potassium Chloride 10 MEQ Tab.ER PO SCH (09:39)
[2020-04-07] MEDS: atorvaSTATin 10 MG Tab PO SCH (09:39)
[2020-04-07] MEDS: Enoxaparin 40 MG/0.4 ML Syringe SUBCUT SCH (09:39)
[2020-04-07] MEDS: Lisinopril 5 MG Tab PO SCH (09:40)
[2020-04-07] MEDS: Multivitamins,Therapeutic Tab PO SCH (09:40)
[2020-04-07] MEDS: Insulin Glarg,Human.Rec.Analog 100 Unit/ML SUBCUT SCH ×2 (09:48→21:52)
--- NOTE | 2020-04-07 10:45 | PN ---
DATE: 04/07/2020 SUBJECTIVE: The patient is a 44-year-old female, admitted with cellulitis of the left lower leg. The patient is currently on vancomycin and Zosyn, and blood culture so far has been negative. The patient mentioned that she still has some fever and chills, and still has some pain on the left leg, but she denies any chest pain, shortness of breath, headache, cough, nor any other complaints. OBJECTIVE: Vital Signs: Blood pressure is 132/66, pulse 68, respirations 20, temperature of 98, saturation is 98% on room air. Heart: Regular rate and rhythm. Normal S1 and S2. No gallops. No rubs. Lungs: Equal bilaterally. No crackles. No wheezing. Abdomen: Obese, soft, nontender. Extremities: Remarkable for the redness on the left lower leg (cellulitis). IMPRESSION: Left leg cellulitis. We will continue with her IV vancomycin and Zosyn. We will also continue with the rest of her medication. [facility] /[id number]
[2020-04-07] MEDS: Ondansetron 4 MG Tab.DIS PO PRN (17:48)
[2020-04-07] MEDS: Amitriptyline 25 MG Tab PO SCH (21:51)
[2020-04-08] MEDS: Piperacillin/Tazobactam 3.375 GM in Sodium Chloride 0.9% 100 ML IV SCH ×3 (05:29→17:52)
[2020-04-08] MEDS: Sodium Chloride 0.9% 10 ML Syringe FLUSH PRN (05:29)
[2020-04-08] MEDS: Pantoprazole 40 MG Tab.CR PO SCH (05:34)
[2020-04-08] MEDS: Acetaminophen/HYDROcodone 325-10 MG Tab PO PRN ×3 (05:40→21:10)
[2020-04-08 08:06] LABS: ANION GAP 9.2 mEq/L (7-13); CHLORIDE,CL 100 mmol/L (98-107); SODIUM,NA 137 mmol/L (136-145)
[2020-04-08] MEDS: Insulin Lispro 100 Units/ML 3 ML Vial SUBCUT SCH ×4 (08:22→21:23)
[2020-04-08] MEDS: Lisinopril 5 MG Tab PO SCH (09:12)
[2020-04-08] MEDS: atorvaSTATin 10 MG Tab PO SCH (09:12)
[2020-04-08] MEDS: Potassium Chloride 10 MEQ Tab.ER PO SCH ×2 (09:12→13:07)
[2020-04-08] MEDS: Furosemide 20 MG Tab PO SCH (09:12)
[2020-04-08] MEDS: glipiZIDE 5 MG Tab.ER PO SCH (09:12)
[2020-04-08] MEDS: Multivitamins,Therapeutic Tab PO SCH (09:12)
[2020-04-08] MEDS: Hydrochlorothiazide 25 MG Tab PO SCH (09:12)
[2020-04-08] MEDS: Enoxaparin 40 MG/0.4 ML Syringe SUBCUT SCH (09:12)
[2020-04-08] MEDS: Insulin Glarg,Human.Rec.Analog 100 Unit/ML SUBCUT SCH ×2 (09:17→21:24)
--- NOTE | 2020-04-08 12:01 | PN ---
DATE: 04/08/2020 SUBJECTIVE: The patient this morning is feeling slightly better and she does not complain of any fever or chills or rigors and the patient's blood sugar level has been improving. She is still complaining though of pain on the left leg from her cellulitis, but she denies any chest pain, shortness of breath, abdominal pain, or any other complaints. LABORATORY DATA: Lab workup this morning, CBC; WBC 7.3, hemoglobin is 9.1, hematocrit is 29.5, platelet is 240. Chem-6; potassium is 3.2 and blood sugar is 104. The rest of the panel unremarkable. OBJECTIVE: Vital Signs: Blood pressure is 136/65, pulse 67, respiration of 20, temperature of 97.4, saturation is 98% on room air. Heart: Regular rate and rhythm. Normal S1 and S2. No gallops. No rubs. Lungs: Clear. No crackles, no wheezing. Abdomen: Obese, soft, nontender. Bowel sounds positive. Extremities: Still remarkable for redness and swelling on the left lower leg. MEDICATIONS: Reviewed. PLAN: We will continue with her IV antibiotics (Zosyn) and we will continue with her Lantus and the rest of her management and I am going to increase her potassium to 20 mEq a day. [facility] /[id number]
[2020-04-08] MEDS: Amitriptyline 25 MG Tab PO SCH (21:10)
[2020-04-09] MEDS: Piperacillin/Tazobactam 3.375 GM in Sodium Chloride 0.9% 100 ML IV SCH ×4 (00:09→18:22)
[2020-04-09] MEDS: Pantoprazole 40 MG Tab.CR PO SCH (06:36)
[2020-04-09] MEDS: Insulin Glarg,Human.Rec.Analog 100 Unit/ML SUBCUT SCH ×2 (09:20→21:00)
[2020-04-09] MEDS: Multivitamins,Therapeutic Tab PO SCH (09:21)
[2020-04-09] MEDS: Furosemide 20 MG Tab PO SCH (09:21)
[2020-04-09] MEDS: Hydrochlorothiazide 25 MG Tab PO SCH (09:22)
[2020-04-09] MEDS: glipiZIDE 5 MG Tab.ER PO SCH (09:22)
[2020-04-09] MEDS: atorvaSTATin 10 MG Tab PO SCH (09:22)
[2020-04-09] MEDS: Acetaminophen/HYDROcodone 325-10 MG Tab PO PRN ×3 (09:22→20:41)
[2020-04-09] MEDS: Lisinopril 5 MG Tab PO SCH (09:22)
[2020-04-09] MEDS: Potassium Chloride 10 MEQ Tab.ER PO SCH (09:22)
[2020-04-09] MEDS: Insulin Lispro 100 Units/ML 3 ML Vial SUBCUT SCH ×4 (09:23→21:02)
[2020-04-09] MEDS: Enoxaparin 40 MG/0.4 ML Syringe SUBCUT SCH (09:23)
[2020-04-09] MEDS: Mupirocin Oint 22 GM Tube TOP SCH ×3 (09:33→20:37)
--- NOTE | 2020-04-09 09:52 | PN ---
DATE: 04/09/2020 SUBJECTIVE: The patient this morning is feeling well, although she still complained of pain on the left lower leg. She had a good night sleep though. She denies any chest pain, shortness of breath, nor any other complaints. The patient's blood sugar has been doing well and improving. OBJECTIVE: Vital Signs: Blood pressure is 135/72, pulse 71, respirations of 20, temperature of 99.2. Heart: Regular rate and rhythm. Normal S1 and S2. No gallops. No rubs. Lungs: Equal bilaterally. No crackles, no wheezing. Abdomen: Obese, soft, nontender. Extremities: Still remarkable for redness on the left lower leg (some improvement). MEDICATIONS: Reviewed. PLAN: We will continue with her present management and continue with IV antibiotics. I am going to order for Bactroban to be applied on the left lower leg. [facility] /[id number]
[2020-04-09] MEDS: Ibuprofen 600 MG Tab PO PRN (16:08)
[2020-04-09] MEDS: Amitriptyline 25 MG Tab PO SCH (20:38)
[2020-04-10] MEDS: Piperacillin/Tazobactam 3.375 GM in Sodium Chloride 0.9% 100 ML IV SCH ×4 (01:05→17:45)
[2020-04-10] MEDS: Pantoprazole 40 MG Tab.CR PO SCH (05:58)
[2020-04-10 07:09] LABS: ANION GAP 12.9 mEq/L (7-13)
[2020-04-10] MEDS ORDERED: Enoxaparin 40 MG/0.4 ML Syringe SUBCUT SCH (09:00)
[2020-04-10] MEDS: glipiZIDE 5 MG Tab.ER PO SCH (09:27)
[2020-04-10] MEDS: Furosemide 20 MG Tab PO SCH (09:27)
[2020-04-10] MEDS: Potassium Chloride 10 MEQ Tab.ER PO SCH (09:27)
[2020-04-10] MEDS: Multivitamins,Therapeutic Tab PO SCH (09:27)
[2020-04-10] MEDS: Hydrochlorothiazide 25 MG Tab PO SCH (09:28)
[2020-04-10] MEDS: atorvaSTATin 10 MG Tab PO SCH (09:28)
[2020-04-10] MEDS: Lisinopril 5 MG Tab PO SCH (09:29)
[2020-04-10] MEDS: Insulin Glarg,Human.Rec.Analog 100 Unit/ML SUBCUT SCH ×2 (09:30→21:22)
[2020-04-10] MEDS: Insulin Lispro 100 Units/ML 3 ML Vial SUBCUT SCH ×4 (09:31→21:09)
[2020-04-10] MEDS: Enoxaparin 30 MG/0.3 ML Syringe SUBCUT SCH (09:57)
[2020-04-10] MEDS: Mupirocin Oint 22 GM Tube TOP SCH ×3 (09:59→21:08)
--- NOTE | 2020-04-10 11:45 | PN ---
DATE: 04/10/2020 SUBJECTIVE: The patient this morning is complaining of being sick to her stomach (nauseous) and she is still complaining of pain on the left lower leg from the cellulitis. The cellulitis on the left leg seems to be developing some blisters. Otherwise, the patient denies any chest pain or shortness of breath. LABORATORY WORKUP: This morning, Chem-6, glucose is 105, BUN is 21, creatinine is 2.49 (worsening). The rest of the panel unremarkable. OBJECTIVE: Vital Signs: Blood pressure is 122/54, pulse of 70, respirations 20, temperature of 98, saturation is 99% on room air. Heart: Regular rate and rhythm. Normal S1 and S2. No gallops. No rubs. Lungs: Clear. No crackles. No wheezing. Abdomen: Soft, nontender. Bowel sounds positive. Extremities: Still remarkable for the redness and development of some blisters on the cellulitis of the left lower leg. IMPRESSION: 1. Cellulitis of the left lower leg. I am going to continue with her intravenous antibiotics, that is the Zosyn and vancomycin, and Pharmacy is adjusting the dose to her creatinine clearance. 2. Acute renal insufficiency. I am going to discontinue the ibuprofen and we will also adjust the dose of her Lovenox. We will continue to monitor. [facility] /[id number]
[2020-04-10] MEDS: Sodium Chloride 0.9% 10 ML Syringe FLUSH PRN ×4 (12:23→18:24)
[2020-04-10] MEDS: Acetaminophen/HYDROcodone 325-10 MG Tab PO PRN (21:06)
[2020-04-10] MEDS: Amitriptyline 25 MG Tab PO SCH (21:08)
[2020-04-11] MEDS: Piperacillin/Tazobactam 3.375 GM in Sodium Chloride 0.9% 100 ML IV SCH ×2 (00:34→06:40)
[2020-04-11] MEDS: Pantoprazole 40 MG Tab.CR PO SCH (06:40)
[2020-04-11 06:53] LABS: ANION GAP 15.8 mEq/L (7-13)
[2020-04-11] MEDS: Insulin Lispro 100 Units/ML 3 ML Vial SUBCUT SCH ×2 (07:44→12:05)
[2020-04-11] MEDS ORDERED: Insulin Glarg,Human.Rec.Analog 100 Unit/ML SUBCUT SCH (09:00)
[2020-04-11] MEDS: Mupirocin Oint 22 GM Tube TOP SCH ×2 (09:21→14:05)
[2020-04-11] MEDS: Acetaminophen/HYDROcodone 325-10 MG Tab PO PRN (09:31)
[2020-04-11] MEDS: Furosemide 20 MG Tab PO SCH (10:23)
[2020-04-11] MEDS: Potassium Chloride 10 MEQ Tab.ER PO SCH (10:23)
[2020-04-11] MEDS: Hydrochlorothiazide 25 MG Tab PO SCH (10:23)
[2020-04-11] MEDS: Multivitamins,Therapeutic Tab PO SCH (10:23)
[2020-04-11] MEDS: atorvaSTATin 10 MG Tab PO SCH (10:23)
[2020-04-11] MEDS: Enoxaparin 30 MG/0.3 ML Syringe SUBCUT SCH (10:24)
[2020-04-11] MEDS: Lisinopril 5 MG Tab PO SCH (10:30)
--- NOTE | 2020-04-11 11:01 | PN ---
DATE: 04/11/2020 SUBJECTIVE: The patient this morning is doing fairly well. She denies any significant ongoing complaint except that she still has some mild stomach upset, but this is usually normal for her. She is still complaining of some pain on the left lower leg from her cellulitis, but she denies any chest pain, shortness of breath, fever, or chills. LAB WORKUP THIS MORNING: CBC; WBC is 10, hemoglobin is 8.7, hematocrit is 28.1, platelets 339. Chem-6 remarkable for BUN of 31 and creatinine is 4.23. Glucose this morning is 64. OBJECTIVE: Vital Signs: Blood pressure is 132/73, pulse 67, respirations 16, temperature of 97.7, saturation is 98% on room air. Heart: Regular rate and rhythm. Normal S1 and S2. No gallops. No rubs. Lungs: Equal bilaterally. No crackles. No wheezing. Abdomen: Obese, but soft, nontender. Bowel sounds positive. Extremities: Still remarkable for the redness and blister on the left lower leg. PLAN: I did discuss with the patient about her increasing creatinine that is quite worrisome and I told her that I am going to be transferring to [facility] for management of her cellulitis which has not resolved yet as well as this acute renal failure. She is agreeable to this. I will be getting in touch with the hospitalist in [facility] in [place] for transfer. [facility] /[id number]
[2020-04-11] MEDS: glipiZIDE 5 MG Tab.ER PO SCH (12:00)
[2020-04-11] MEDS: Insulin Glarg,Human.Rec.Analog 100 Unit/ML SUBCUT SCH (12:00)
--- NOTE | 2020-04-11 13:08 | DISCH ---
FINAL DIAGNOSES: 1. Cellulitis of the left lower leg. 2. Acute renal failure. 3. Type 2 diabetes mellitus. 4. Hypertension. 5. Obesity. BRIEF HISTORY OF PRESENT ILLNESS: Please see H and P. PERTINENT LABS, X-RAY, AND OTHER TESTS ON ADMISSION: See H and P. HOSPITAL COURSE: The patient was admitted to General Medicine floor and she was empirically started on vancomycin and Zosyn for the cellulitis. She was also placed on sliding scale insulin and continued on Lantus. She was also resumed on her Lipitor, glipizide, Lasix, and lisinopril. The patient was doing well with some improvement of the redness of the cellulitis on the left lower leg, but hospital course was complicated by increasing levels of her BUN and creatinine. Creatinine done on April 10, 2020, was 2.49, and because of this, her ibuprofen was discontinued, and creatinine was rechecked on April 11, and creatinine went up to 4.23. Blood sugar was also running low, and because of these events, the patient's Lovenox was adjusted accordingly to her kidney function and Lantus was also adjusted because of the low blood sugar, and consultation with Dr. Carnes was placed, and I have also talked to Dr. Hamm, who is the hospitalist in [place] for possible transfer because of the persistent cellulitis as well as this acute renal failure, and he is willing to accept the patient in transfer. CONDITION ON TRANSFER: Stable. [facility] /[id number]
[2020-04-11] MEDS ORDERED: Piperacillin/Tazobactam 2.25 GM in Sodium Chloride 0.9% 50 ML IV SCH (14:00)
[2020-04-11 16:27] VITALS: BP 151/39; PULSE 80
== END 2020-04-11 15:30 | DRG 872 ==
LOC: DL.ED 12:09 → UNDOADMIN 13:41 → DL.MS 13:41
PROVIDERS: ADMIT Internal Medicine; ATTEND Internal Medicine
DX: A41.9 Sepsis, unspecified organism (principal); N17.9 Acute kidney failure, unspecified; L03.116 Cellulitis of left lower limb; Z68.41 Body mass index [BMI] 40.0-44.9, adult; I10 Essential (primary) hypertension; E78.00 Pure hypercholesterolemia, unspecified; E78.5 Hyperlipidemia, unspecified; E66.9 Obesity, unspecified; K21.9 Gastro-esophageal reflux disease without esophagitis; K58.9 Irritable bowel syndrome, unspecified; K52.9 Noninfective gastroenteritis and colitis, unspecified; M19.90 Unspecified osteoarthritis, unspecified site; G43.909 Migraine, unspecified, not intractable, without status migrainosus; E87.6 Hypokalemia; Z90.89 Acquired absence of other organs; E11.9 Type 2 diabetes mellitus without complications; D64.9 Anemia, unspecified; Z90.49 Acquired absence of other specified parts of digestive tract; Z98.890 Other specified postprocedural states; Z87.891 Personal history of nicotine dependence; Z88.6 Allergy status to analgesic agent; Z88.5 Allergy status to narcotic agent; Z79.4 Long term (current) use of insulin; Z79.899 Other long term (current) drug therapy
CPT/HCPCS: 36415; 80048; 80053; 80202; 80305-QW; 80307; 81003; 81025; 82962; 83605; 85025; 85379; 87040; 99284; A9270-GY; J1650; J1815-GY; J2270; J2543; J3370; J3480; J7030; J7040; J7050

== ENCOUNTER 2020-11-22 18:09 | Emergency (ER) | payer OTHER ==
[2020-11-22] MEDS ORDERED: Acetaminophen/HYDROcodone 325-5 MG Tab PO ONE (18:10)
[2020-11-22 19:12] VITALS: BP 155/75; PULSE 95
--- NOTE | 2020-11-22 19:19 | EDM.PDOC ---
ED HPI GENERAL MEDICAL PROBLEM - General Chief Complaint: Lower Extremity Injury/Pain Stated Complaint: PAIN IN LEFT KNEE Time Seen by Provider: 11/22/20 19:10 Source of Information: Reports: Patient, RN History Limitations: Reports: No Limitations - History of Present Illness INITIAL COMMENTS - FREE TEXT/NARRATIVE: ED with pain to left knee since Tuesday. Chronic swelling left leg, eczema chronic left lower leg. Denies injury, No fever, Not noting redness, pain shoots down leg at times, some pain behind knee. No hx blood clots. Tried tylenol but not helping pain. Left Knee Pain Score (Numeric/FACES): 10 - Related Data Allergies Allergy/AdvReac Type Severity Reaction Status Date / Time liraglutide [From Victoza] Allergy Diarrhea Verified 04/04/20 14:37 codeine AdvReac Lightheaded Verified 04/04/20 12:30 ness tramadol AdvReac Dizziness Verified 04/04/20 12:30 Home Meds: Home Meds Lisinopril 5 mg PO DAILY 08/13/16 [History] Hydrochlorothiazide 12.5 mg PO DAILY 05/11/17 [History] Pantoprazole [ProTONIX] 40 mg PO ACBREAKFAST 05/11/17 [History] atorvaSTATin [Lipitor] 10 mg PO DAILY 05/11/17 [History] glipiZIDE [Glipizide ER] 10 mg PO DAILY 11/06/19 [History] metFORMIN [Glucophage] 500 mg PO BID 11/06/19 [History] Alogliptin Benzoate [Alogliptin] 25 mg PO DAILY 04/04/20 [History] Amitriptyline [Elavil] 50 mg PO BEDTIME 04/04/20 [History] Baclofen 10 mg PO BEDTIME 04/04/20 [History] Furosemide 20 mg PO BEDTIME 04/04/20 [History] Insulin Aspart [Insulin Aspart Flexpen] 22 units SUBCUT BEDTIME 04/04/20 [History] Insulin Aspart [Insulin Aspart Flexpen] 40 units SQ TIDMEALS 04/04/20 [History] Insulin Detemir [Levemir] 50 units SQ BID 04/04/20 [History] Meclizine HCl 25 mg PO TID PRN 04/04/20 [History] Multivitamin [Multi-Vitamin Daily] 1 tab PO DAILY 04/04/20 [History] Potassium Chloride [K-Tab ER] 10 meq PO DAILY 04/04/20 [History] Triamcinolone Acetonide [Triamcinolone Acetonide 0.1% Oint] 1 applic TOP BID 04/04/20 [History] metroNIDAZOLE [Metronidazole] 1 applic TOP BID PRN 04/04/20 [History] Past Medical History HEENT History: Reports: None Cardiovascular History: Reports: High Cholesterol, Hypertension Respiratory History: Reports: None Gastrointestinal History: Reports: GERD, Inflammatory Bowel Disease Genitourinary History: Reports: None [employer] History: Reports: Spontaneous Musculoskeletal History: Reports: Arthritis Neurological History: Reports: Migraines Psychiatric History: Reports: None Endocrine/Metabolic History: Reports: Diabetes, Type II, Obesity/BMI 30+ Hematologic History: Reports: Anemia Other Hematologic History: hypokalemic. low vit d Immunologic History: Reports: Other (See Below) Other Immunologic History: SEPSIS WITH CUTANEOUS MANIFESTATIONS Oncologic (Cancer) History: Reports: None Dermatologic History: Reports: Cellulitis, Psoriasis Other Dermatologic History: plaque psoriasis - Infectious Disease History Infectious Disease History: Reports: Chicken Pox, Helicobacter Pylori - Past Surgical History Head Surgeries/Procedures: Reports: None HEENT Surgical History: Reports: Tonsillectomy Cardiovascular Surgical History: Reports: None Respiratory Surgical History: Reports: None GI Surgical History: Reports: Cholecystectomy, EGD, Other (See Below) Female Surgical History: Reports: None Musculoskeletal Surgical History: Reports: Arthroscopic Knee, Other (See Below) Other Musculoskeletal Surgeries/Procedures:: Left knee surgery x 3 Social & Family History - Caffeine Use Caffeine Use: Reports: Energy Drinks, Soda, Tea Other Caffeine Use: 24 oz coffee daily. 60 oz energy drinks daily. 40 oz soda daily Review of Systems - Review of Systems Review Of Systems: Comprehensive ROS is negative, except as noted in HPI. ED EXAM, GENERAL - Physical Exam Exam: See Below Exam Limited By: No Limitations General Appearance: Alert, Mild Distress, Obese Eye Exam: Bilateral Eye: EOMI Throat/Mouth: Normal Voice, No Airway Compromise Head: Atraumatic, Normocephalic Neck: Normal Inspection Cardiovascular: Normal Peripheral Pulses Extremities: Pedal Edema ( left greater than right, reports chronic), Joint Swelling (mild), Limited Range of Motion (le knee). No: Increased Warmth, Pallor, Redness Neurological: Alert, Oriented Skin Exam: Warm, Other (chronic skin changes lower extremeties, no dependent rubur, dark patch posterior loer calf, 4cm circular eczematous patch left upper calf, mild excoriation ). No: Increased Warmth Course - Vital Signs Last Recorded V/S: Last Vital Signs Temp 97 F 11/22/20 19:07 Pulse 95 11/22/20 19:07 Resp 22 H 11/22/20 19:07 BP 155/75 H 11/22/20 19:07 Pulse Ox 99 11/22/20 19:07 - Orders/Labs/Meds Labs: Laboratory Tests 11/22/20 11/22/20 11/22/20 Range/Units 19:30 19:30 19:30 WBC 8.8 (5.0-10.0) 10^3/uL RBC 4.56 (4.2-5.4) 10^6/uL Hgb 11.6 L D (12.0-16.0) g/dL Hct 36.3 L (37.0-47.0) % MCV 79.6 L D (80-100) fL MCH 25.4 L (27.0-34.0) pg MCHC 32.0 L (33.0-35.0) g/dL Plt Count 263 D (150-450) 10^3/uL Neut % (Auto) 59.3 (42.2-75.2) % Lymph % (Auto) 31.7 (20.5-50.1) % Franklin % (Auto) 6.1 (2-8) % Eos % (Auto) 2.4 (1.0-3.0) % Baso % (Auto) 0.5 (0.0-1.0) % D-Dimer, Quantitative 226 (0-400) ng/mL Sodium 142 (136-145) mmol/L Potassium 3.4 L (3.5-5.1) mmol/L Chloride 103 (98-107) mmol/L Carbon Dioxide 28 (21-32) mmol/L Anion Gap 14.4 H (7-13) mEq/L BUN 20 H (7-18) mg/dL Creatinine 1.02 D (0.55-1.02) mg/dL Est Cr Clr Drug Dosing 75.32 mL/min Estimated GFR (MDRD) 59 BUN/Creatinine Ratio 19.6 (No establ ref range) Glucose 230 H (74-99) mg/dL Lactic Acid (0.4-2.0) mmol/L Calcium 8.7 (8.5-10.1) mg/dL Total Bilirubin 0.2 (0.2-1.0) mg/dL AST 12 L (15-37) U/L ALT 31 (14-59) U/L Alkaline Phosphatase 93 (46-116) U/L C-Reactive Protein 1.2 H (0.0-0.9) mg/dL Total Protein 7.5 (6.4-8.2) g/dL Albumin 3.5 (3.4-5.0) g/dL Globulin 4.0 Albumin/Globulin Ratio 0.9 // Range/Units 19:30 WBC (5.0-10.0) 10^3/uL RBC (4.2-5.4) 10^6/uL Hgb (12.0-16.0) g/dL Hct (37.0-47.0) % MCV (80-100) fL MCH (27.0-34.0) pg MCHC (33.0-35.0) g/dL Plt Count (150-450) 10^3/uL Neut % (Auto) (42.2-75.2) % Lymph % (Auto) (20.5-50.1) % Franklin % (Auto) (2-8) % Eos % (Auto) (1.0-3.0) % Baso % (Auto) (0.0-1.0) % D-Dimer, Quantitative (0-400) ng/mL Sodium (136-145) mmol/L Potassium (3.5-5.1) mmol/L Chloride (98-107) mmol/L Carbon Dioxide (21-32) mmol/L Anion Gap (7-13) mEq/L BUN (7-18) mg/dL Creatinine (0.55-1.02) mg/dL Est Cr Clr Drug Dosing mL/min Estimated GFR (MDRD) BUN/Creatinine Ratio (No establ ref range) Glucose (74-99) mg/dL Lactic Acid 1.2 (0.4-2.0) mmol/L Calcium (8.5-10.1) mg/dL Total Bilirubin (0.2-1.0) mg/dL AST (15-37) U/L ALT (14-59) U/L Alkaline Phosphatase (46-116) U/L C-Reactive Protein (0.0-0.9) mg/dL Total Protein (6.4-8.2) g/dL Albumin (3.4-5.0) g/dL Globulin Albumin/Globulin Ratio Meds: Medications Discontinued Medications Generic Name Dose Route Start Last Admin Trade Name Felix PRN Reason Stop Dose Admin Hydrocodone Bitart/Acetaminophen Confirm 11/22/20 20:11 Acetaminophen/Hydrocodone 325-5 Mg Tab Administered 11/22/20 20:12 Dose 5 tab .ROUTE .STK-MED ONE Departure - Departure Time of Disposition: 20:04 Disposition: Home, Self-Care 01 Condition: Good Clinical Impression: Tricompartment osteoarthritis of left knee, Knee effusion, left Diabetes Qualifiers: Diabetes mellitus type: type 2 Diabetes mellitus longterm insulin use: unspecified longterm insulin use status Diabetes mellitus complication status: with skin complications Diabetes mellitus complication detail: with other skin complication Qualified Code(s): E11.628 - Type 2 diabetes mellitus with other skin complications - Discharge Information *PRESCRIPTION DRUG MONITORING PROGRAM REVIEWED*: No *COPY OF PRESCRIPTION DRUG MONITORING REPORT IN PATIENT BRIAN: No Instructions: Arthritis, [id number], Osteoarthritis Forms: ED Department Discharge Additional Instructions: Crutches weight bearing sa tolerated ice hydrocodone /apap 5/325 one every 8 hours as needed for severe pain tylenol 650mg every 8 hours alternating with hydrocodone clinic follow up on Tuesday Sepsis Event Note (ED) - Evaluation Sepsis Screening Result: No Definite Risk - Focused Exam Vital Signs: Vital Signs Temp Pulse Resp BP Pulse Ox 11/22/20 19:07 97 F 95 22 H 155/75 H 99
--- NOTE | 2020-11-22 19:29 | CR ---
PROCEDURE INFORMATION: Exam: XR Left Knee Exam date and time: 11/22/2020 7:16 PM Age: 45 years old Clinical indication: Other: Pain/no trauma; Additional info: Pain, hurts to bear weight, no injury TECHNIQUE: Imaging protocol: XR Left knee. Views: 3 views. COMPARISON: No relevant prior studies available. FINDINGS: Bones/joints: Severe tricompartmental osteoarthritis, as manifested by almost complete loss of the joint space, large osteophyte formation, subchondral cyst formation, and subchondral sclerosis. Normal anatomic alignment. There is no evidence of acutely displaced fractures. There is no evidence of dislocation. A moderate suprapatellar joint effusion is present. Soft tissues: There is no significant soft tissue swelling. IMPRESSION: 1. Severe tricompartmental osteoarthritis. 2. Moderate suprapatellar effusion. 3. Negative for acute skeletal pathology.
[2020-11-22 19:53] LABS: ANION GAP 14.4 mEq/L (7-13)
[2020-11-22] MEDS ORDERED: Acetaminophen/HYDROcodone 325-5 MG Tab ONE (20:11)
== END 2020-11-22 20:18 | disposition home or self-care (01) ==
LOC: DL.ED 18:09
DX: M17.12 Unilateral primary osteoarthritis, left knee (principal); M25.462 Effusion, left knee; E11.628 Type 2 diabetes mellitus with other skin complications; E78.00 Pure hypercholesterolemia, unspecified; I10 Essential (primary) hypertension; K21.9 Gastro-esophageal reflux disease without esophagitis; E66.9 Obesity, unspecified; Z68.41 Body mass index [BMI] 40.0-44.9, adult; Z79.4 Long term (current) use of insulin; Z79.899 Other long term (current) drug therapy; Z88.8 Allergy status to other drugs, medicaments and biological substances; Z88.5 Allergy status to narcotic agent
CPT/HCPCS: 36415; 73562; 80053; 83605; 85025; 85379; 86140; 99283; A9270

== ENCOUNTER 2022-08-06 11:59 | Emergency (ER) | payer OTHER ==
[2022-08-06 13:56] VITALS: BP 113/92; PULSE 108
[2022-08-06] MEDS ORDERED: Ondansetron 4 MG/2 ML SDV IVPUSH ONE (13:57)
[2022-08-06] MEDS ORDERED: Sodium Chloride 0.9% 1,000 ML IV ONE ×2 (13:57→15:42)
[2022-08-06] MEDS ORDERED: Pantoprazole 40 MG Vial IVPUSH ONE (13:57)
[2022-08-06 14:33] LABS: ANION GAP 13.2 mEq/L (7-13); CHLORIDE,CL 101 mmol/L (98-107); SODIUM,NA 137 mmol/L (136-145)
[2022-08-06 14:34] LABS: ACETAMINOPHEN 0 ug/mL (10-30 (Therapeutic)); ESTIMATED GFR 66 mL/min (>=60)
[2022-08-06] MEDS ORDERED: HYDROmorphone 0.5 MG/0.5 ML Syringe IVPUSH ONE (14:37)
[2022-08-06] MEDS ORDERED: Iopamidol 612 MG/ML 100 ML Bottle IVPUSH ONE (14:38)
[2022-08-06] MEDS ORDERED: GI Cocktail Oral Solution 30 ML PO ONE (15:01)
[2022-08-06 15:15] LABS: CORONAVIRUS COVID-19 NAA NEGATIVE (NEGATIVE)
== END 2022-08-06 16:37 | disposition home or self-care (01) ==
LOC: DL.ED 11:59
DX: K29.00 Acute gastritis without bleeding (principal); J10.1 Influenza due to other identified influenza virus with other respiratory manifestations; E78.00 Pure hypercholesterolemia, unspecified; I10 Essential (primary) hypertension; E11.9 Type 2 diabetes mellitus without complications; E66.9 Obesity, unspecified; Z68.41 Body mass index [BMI] 40.0-44.9, adult; Z88.5 Allergy status to narcotic agent; Z79.899 Other long term (current) drug therapy; Z79.84 Long term (current) use of oral hypoglycemic drugs; Z79.4 Long term (current) use of insulin; Z90.49 Acquired absence of other specified parts of digestive tract; Z86.16 Personal history of COVID-19; Z20.822 Contact with and (suspected) exposure to COVID-19
CPT/HCPCS: 0240U; 36415; 74177; 80053; 80143; 80179; 80307; 82140; 82150; 83605; 83690; 83735; 84484; 85025; 93005; 96361; 96374; 96375; 99284; A9270; C9113; J1170; J2405; J7030; Q9967

== ENCOUNTER 2022-08-09 12:40 | Emergency (ER) | payer OTHER ==
[2022-08-09 12:55] VITALS: BP 142/72; PULSE 79
[2022-08-09 13:46] LABS: ANION GAP 10.4 mEq/L (7-13)
[2022-08-09] MEDS: Iopamidol 612 MG/ML 100 ML Bottle IVPUSH ONE (14:43)
[2022-08-09] MEDS: Sodium Chloride 0.9% 1,000 ML IV ONE (14:49)
[2022-08-09] MEDS: Pantoprazole 40 MG Vial IVPUSH ONE (15:24)
== END 2022-08-09 16:01 | disposition home or self-care (01) ==
LOC: DL.ED 12:40
DX: J10.2 Influenza due to other identified influenza virus with gastrointestinal manifestations (principal); E78.00 Pure hypercholesterolemia, unspecified; I10 Essential (primary) hypertension; K21.9 Gastro-esophageal reflux disease without esophagitis; M19.90 Unspecified osteoarthritis, unspecified site; E11.9 Type 2 diabetes mellitus without complications; E66.9 Obesity, unspecified; Z68.41 Body mass index [BMI] 40.0-44.9, adult; Z88.8 Allergy status to other drugs, medicaments and biological substances; Z88.5 Allergy status to narcotic agent; Z79.4 Long term (current) use of insulin; Z79.899 Other long term (current) drug therapy
CPT/HCPCS: 36415; 74177; 80053; 83605; 85025; 87040; 96361; 96374; 99284; C9113; J7030; Q9967

== ENCOUNTER 2022-08-24 19:00 | Emergency (ER) | payer OTHER ==
[2022-08-24] MEDS ORDERED: Ondansetron 4 MG Tab.DIS PO ONE (19:01)
[2022-08-24 19:27] VITALS: BP 125/72; PULSE 97
[2022-08-24] MEDS ORDERED: HYDROmorphone 1 MG/ML Syringe IVPUSH ONE (19:42)
[2022-08-24] MEDS ORDERED: Ondansetron 4 MG/2 ML SDV IVPUSH ONE (19:42)
[2022-08-24] MEDS ORDERED: Sodium Chloride 0.9% 1,000 ML IV ONE (19:42)
[2022-08-24 19:58] LABS: ANION GAP 12.2 mEq/L (7-13); CHLORIDE,CL 103 mmol/L (98-107); SODIUM,NA 140 mmol/L (136-145)
[2022-08-24 20:02] LABS: ESTIMATED GFR 67 mL/min (>=60)
[2022-08-24] MEDS ORDERED: Metoclopramide 10 MG/2 ML SDV IVPUSH ONE (20:59)
[2022-08-24] MEDS ORDERED: Iopamidol 612 MG/ML 100 ML Bottle IVPUSH ONE (21:01)
[2022-08-24 21:33] LABS: CORONAVIRUS COVID-19 NAA NEGATIVE (NEGATIVE); RESPIRATORY SYNCYTIAL VIR NAA NEGATIVE (NEGATIVE)
[2022-08-24] MEDS ORDERED: cefTRIAXone 1 GM Vial IVPUSH ONE (22:30)
[2022-08-24] MEDS ORDERED: Ondansetron 4 MG Tab.DIS ONE (22:32)
== END 2022-08-24 22:59 | disposition home or self-care (01) ==
LOC: DL.ED 19:00
DX: K52.9 Noninfective gastroenteritis and colitis, unspecified (principal); K83.1 Obstruction of bile duct; N28.89 Other specified disorders of kidney and ureter; N83.8 Other noninflammatory disorders of ovary, fallopian tube and broad ligament; E78.00 Pure hypercholesterolemia, unspecified; I10 Essential (primary) hypertension; K21.9 Gastro-esophageal reflux disease without esophagitis; E11.9 Type 2 diabetes mellitus without complications; E66.9 Obesity, unspecified; Z88.5 Allergy status to narcotic agent; Z88.8 Allergy status to other drugs, medicaments and biological substances; Z79.899 Other long term (current) drug therapy; Z79.4 Long term (current) use of insulin; Z87.891 Personal history of nicotine dependence; Z20.822 Contact with and (suspected) exposure to COVID-19; Z68.41 Body mass index [BMI] 40.0-44.9, adult
CPT/HCPCS: 0241U; 36415; 74177; 80053; 80307; 82150; 83605; 83690; 83735; 84145; 85025; 86140; 87040; 93005; 93010; 96361; 96374; 96375; 99284; A9270; J0696; J1170; J2405; J2765; J7030; Q9967

== ENCOUNTER 2022-10-03 11:22 | Emergency (ER) | payer BC, MEDICAID, OTHER ==
[2022-10-03] MEDS ORDERED: Cyclobenzaprine 10 MG Tab PO ONE ×2 (11:23→13:10)
[2022-10-03] MEDS ORDERED: Acetaminophen/HYDROcodone 325-10 MG Tab PO ONE ×2 (11:23→13:10)
[2022-10-03] MEDS ORDERED: Ketorolac 30 MG/ML SDV IM ONE (13:10)
[2022-10-03 13:52] VITALS: BP 149/71; PULSE 82
[2022-10-03] MEDS ORDERED: Acetaminophen/HYDROcodone 325-10 MG Tab ONE (13:54)
[2022-10-03] MEDS ORDERED: Cyclobenzaprine 10 MG Tab ONE (13:55)
== END 2022-10-03 14:08 | disposition home or self-care (01) ==
LOC: DL.ED 11:22
DX: S30.0XXA Contusion of lower back and pelvis, initial encounter (principal); M62.830 Muscle spasm of back; E78.00 Pure hypercholesterolemia, unspecified; I10 Essential (primary) hypertension; K21.9 Gastro-esophageal reflux disease without esophagitis; M19.90 Unspecified osteoarthritis, unspecified site; E11.9 Type 2 diabetes mellitus without complications; E66.9 Obesity, unspecified; Z68.41 Body mass index [BMI] 40.0-44.9, adult; Z79.4 Long term (current) use of insulin; Z79.899 Other long term (current) drug therapy; Z88.5 Allergy status to narcotic agent; Z88.8 Allergy status to other drugs, medicaments and biological substances; W18.30XA Fall on same level, unspecified, initial encounter
CPT/HCPCS: 72100; 72220; 96372; 99283; 99284; A9270-GY; J1885

== ENCOUNTER 2023-02-13 13:32 | Emergency (ER) | payer OTHER ==
[2023-02-13 13:50] VITALS: BP 136/67; PULSE 74
[2023-02-13 13:50] LABS: APPEARANCE,URINE SLIGHTLY CLOUDY (CLEAR); BILIRUBIN,URINE NEGATIVE (NEGATIVE); GLUCOSE,URINE 500 (NEGATIVE); KETONES,URINE NEGATIVE (NEGATIVE); LEUKOCYTE ESTERASE,URINE SMALL (NEGATIVE); NITRITE,URINE POSITIVE (NEGATIVE); OCCULT BLOOD,URINE LARGE (NEGATIVE); PROTEIN,URINE 100 (NEGATIVE); UROBILINOGEN,URINE 0.2 mg/dL (0.2-1.0)
[2023-02-13 13:51] LABS: COLOR,URINE LIGHT YELLOW (YELLOW)
[2023-02-13] MEDS ORDERED: Ketorolac 30 MG/ML SDV IM ONE (13:51)
[2023-02-13] MEDS ORDERED: Ciprofloxacin 500 MG Tab PO ONE (13:52)
[2023-02-13] MEDS ORDERED: Phenazopyridine 95 MG Tab PO ONE (13:52)
[2023-02-13 14:00] LABS: AMORPHOUS SEDIMENT,URINE FEW /HPF (NOT SEEN); BACTERIA,URINE MODERATE /HPF (0-FEW/HPF); EPITHELIAL CELLS,URINE FEW /HPF (NOT SEEN); MUCUS,URINE RARE /LPF (NOT SEEN); RBC,URINE >100 /HPF (0-5); WBC,URINE 50-75 /HPF (0-5/HPF)
== END 2023-02-13 14:00 | disposition home or self-care (01) ==
LOC: DL.ED 13:32
DX: N30.01 Acute cystitis with hematuria (principal); E11.9 Type 2 diabetes mellitus without complications; I10 Essential (primary) hypertension; K21.9 Gastro-esophageal reflux disease without esophagitis; E66.9 Obesity, unspecified; Z68.41 Body mass index [BMI] 40.0-44.9, adult; Z88.5 Allergy status to narcotic agent; Z86.16 Personal history of COVID-19; Z79.4 Long term (current) use of insulin; Z79.899 Other long term (current) drug therapy
CPT/HCPCS: 81001; 87086; 87088; 87186; 96372; 99283; A9270; J1885; 99284

== ENCOUNTER 2023-10-10 02:13 | Emergency (ER) | payer MEDICAID, OTHER ==
[2023-10-10 02:37] VITALS: PULSE 72
[2023-10-10 02:52] VITALS: BP 155/83
[2023-10-10] MEDS: Take Home: Amoxicillin/Clavulanate K 875-125 MG Tab, 6 Tab Pack PO ONE (02:58)
== END 2023-10-10 03:17 | disposition home or self-care (01) ==
LOC: DL.ED 02:13
DX: J01.10 Acute frontal sinusitis, unspecified (principal); J01.00 Acute maxillary sinusitis, unspecified; I10 Essential (primary) hypertension; E78.00 Pure hypercholesterolemia, unspecified; K21.9 Gastro-esophageal reflux disease without esophagitis; E11.9 Type 2 diabetes mellitus without complications; E66.9 Obesity, unspecified; Z86.16 Personal history of COVID-19; Z88.5 Allergy status to narcotic agent; Z88.8 Allergy status to other drugs, medicaments and biological substances; Z79.899 Other long term (current) drug therapy; Z79.84 Long term (current) use of oral hypoglycemic drugs; Z79.4 Long term (current) use of insulin
CPT/HCPCS: 99283; A9270

== ENCOUNTER 2023-10-10 21:40 | Emergency (ER) | payer MEDICAID, OTHER ==
[2023-10-10] MEDS: Ketorolac 30 MG/ML SDV IVPUSH ONE (22:11)
[2023-10-10] MEDS: Sodium Chloride 0.9% 10 ML Syringe FLUSH PRN (22:11)
[2023-10-10 22:19] LABS: BASOPHILS PERCENT AUTO 0.3 % (0.0-1.0); EOSINOPHILS PERCENT AUTO 2.1 % (1.0-3.0); HEMATOCRIT 42.3 % (37.0-47.0); HEMOGLOBIN 13.2 g/dL (12.0-16.0); LYMPHOCYTES PERCENT AUTO 24.4 % (20.5-50.1); MEAN CORPUSCULAR HEMOGLOBIN 23.5 pg (27.0-34.0); MEAN CORPUSCULAR HGB CONC 31.2 g/dL (33.0-35.0); MEAN CORPUSCULAR VOLUME 75.3 fL (80-100); MONOCYTES PERCENT AUTO 9.2 % (2-8); PLATELET COUNT,PLT 276 10^3/uL (150-450); RED BLOOD CELL COUNT 5.62 10^6/uL (4.2-5.4); WHITE BLOOD CELL COUNT,WBC 7.8 10^3/uL (5.0-10.0)
[2023-10-10 22:22] LABS: APPEARANCE,URINE CLEAR (CLEAR); BILIRUBIN,URINE NEGATIVE (NEGATIVE); COLOR,URINE YELLOW (YELLOW); GLUCOSE,URINE 500 (NEGATIVE); KETONES,URINE NEGATIVE (NEGATIVE); LEUKOCYTE ESTERASE,URINE NEGATIVE (NEGATIVE); NITRITE,URINE NEGATIVE (NEGATIVE); OCCULT BLOOD,URINE NEGATIVE (NEGATIVE); PH,URINE 5.5 (5.0-9.0); PROTEIN,URINE NEGATIVE (NEGATIVE); UROBILINOGEN,URINE 0.2 mg/dL (0.2-1.0)
[2023-10-10 22:23] LABS: AMPHETAMINES,URINE NEGATIVE (NEGATIVE); BARBITURATES,URINE NEGATIVE (NEGATIVE); BENZODIAZEPINE,URINE NEGATIVE (NEGATIVE); MDMA (ECSTASY), URINE NEGATIVE (NEGATIVE); METHADONE,URINE NEGATIVE (NEGATIVE); METHAMPHETAMINES,URINE NEGATIVE (NEGATIVE); OPIATES,URINE NEGATIVE (NEGATIVE); OXYCODONE,URINE NEGATIVE (NEGATIVE); PHENCYCLIDINE,URINE NEGATIVE (NEGATIVE); TCA,URINE NEGATIVE (NEGATIVE)
[2023-10-10 22:37] LABS: A/G RATIO 0.9; ALBUMIN 3.9 g/dL (3.4-5.0); ANION GAP 11.6 mEq/L (7-13); BILIRUBIN TOTAL 0.7 mg/dL (0.2-1.0); BUN/CREATININE RATIO 17.1 (No establ ref range); C-REACTIVE PROTEIN 1.06 ng/dL (<=0.50); CALCIUM 8.9 mg/dL (8.5-10.1); CREATININE 1.17 mg/dL (0.55-1.02); EST CRCL DRUG DOSING (CG) 64.28 mL/min; POTASSIUM,K 3.6 mmol/L (3.5-5.1); PROTEIN TOTAL,TP 8.3 g/dL (6.4-8.2)
[2023-10-10 22:55] LABS: CORONAVIRUS COVID-19 NAA NEGATIVE (NEGATIVE); INFLUENZA A NAA NEGATIVE (NEGATIVE); INFLUENZA B NAA NEGATIVE (NEGATIVE); RESPIRATORY SYNCYTIAL VIR NAA NEGATIVE (NEGATIVE)
[2023-10-10] MEDS: Iopamidol 612 MG/ML 100 ML Bottle IVPUSH ONE (23:07)
[2023-10-10 23:41] VITALS: PULSE 66
[2023-10-10 23:54] VITALS: BP 126/74
== END 2023-10-11 00:07 | disposition home or self-care (01) ==
LOC: DL.ED 21:40
DX: J01.10 Acute frontal sinusitis, unspecified (principal); J01.00 Acute maxillary sinusitis, unspecified; B96.89 Other specified bacterial agents as the cause of diseases classified elsewhere; I10 Essential (primary) hypertension; E78.00 Pure hypercholesterolemia, unspecified; K21.9 Gastro-esophageal reflux disease without esophagitis; E11.9 Type 2 diabetes mellitus without complications; E66.9 Obesity, unspecified; Z88.5 Allergy status to narcotic agent; Z88.6 Allergy status to analgesic agent; Z88.8 Allergy status to other drugs, medicaments and biological substances; Z86.16 Personal history of COVID-19; Z68.38 Body mass index [BMI] 38.0-38.9, adult; Z79.4 Long term (current) use of insulin; Z79.899 Other long term (current) drug therapy
CPT/HCPCS: 0241U; 36415; 70460; 80053; 80305; 81003; 85025; 86140; 96374; 99284; J1885; Q9967; J3490

== ENCOUNTER 2024-05-05 09:21 | Emergency (ER) | payer MEDICAID ==
[2024-05-05 10:19] LABS: BASOPHILS PERCENT AUTO 0.2 % (0.0-1.0); EOSINOPHILS PERCENT AUTO 0.5 % (1.0-3.0); HEMATOCRIT 42.5 % (37.0-47.0); HEMOGLOBIN 13.2 g/dL (12.0-16.0); MEAN CORPUSCULAR HEMOGLOBIN 23.9 pg (27.0-34.0); MEAN CORPUSCULAR HGB CONC 31.1 g/dL (33.0-35.0); MEAN CORPUSCULAR VOLUME 76.9 fL (80-100); MONOCYTES PERCENT AUTO 6.8 % (2-8); NEUTROPHILS PERCENT AUTO 72.5 % (42.2-75.2); PLATELET COUNT,PLT 303 10^3/uL (150-450); RED BLOOD CELL COUNT 5.53 10^6/uL (4.2-5.4); WHITE BLOOD CELL COUNT,WBC 12.9 10^3/uL (5.0-10.0)
[2024-05-05 10:35] LABS: INR 0.9 (0.9-1.2); PROTHROMBIN TIME 9.8 SEC (9.0-12.0)
[2024-05-05 10:42] LABS: ALANINE AMINOTRANSFERASE,ALT 24 U/L (14-59); ALBUMIN 4.2 g/dL (3.4-5.0); ALKALINE PHOSPHATASE 101 U/L (46-116); ANION GAP 13.9 mEq/L (7-13); ASPARTATE AMNIOTRANSFERASE,AST 13 U/L (15-37); BLOOD UREA NITROGEN,BUN 22 mg/dL (7-18); BUN/CREATININE RATIO 12.7 (No establ ref range); C-REACTIVE PROTEIN 5.73 ng/dL (<=0.50); CALCIUM 9.7 mg/dL (8.5-10.1); CARBON DIOXIDE,CO2 27 mmol/L (21-32); CHLORIDE,CL 100 mmol/L (98-107); CREATININE 1.73 mg/dL (0.55-1.02); GLUCOSE RANDOM 156 mg/dL (70-99); LIPASE 30 U/L (16-77); POTASSIUM,K 3.9 mmol/L (3.5-5.1); PROTEIN TOTAL,TP 8.6 g/dL (6.4-8.2); SODIUM,NA 137 mmol/L (136-145)
[2024-05-05 10:45] LABS: ESTIMATED GFR 36 mL/min (>=60)
[2024-05-05] MEDS: Sodium Chloride 0.9% 1,000 ML IV ONE ×2 (13:00→14:49)
[2024-05-05 13:56] LABS: APPEARANCE,URINE CLOUDY (CLEAR); BILIRUBIN,URINE NEGATIVE (NEGATIVE); COLOR,URINE YELLOW (YELLOW); GLUCOSE,URINE 500 (NEGATIVE); KETONES,URINE NEGATIVE (NEGATIVE); LEUKOCYTE ESTERASE,URINE SMALL (NEGATIVE); NITRITE,URINE POSITIVE (NEGATIVE); OCCULT BLOOD,URINE MODERATE (NEGATIVE); PH,URINE 5.5 (5.0-9.0); PROTEIN,URINE 30 (NEGATIVE); UROBILINOGEN,URINE 0.2 mg/dL (0.2-1.0)
[2024-05-05 14:04] LABS: EPITHELIAL CELLS,URINE FEW /HPF (NOT SEEN); WBC,URINE 40-50 /HPF (0-5/HPF)
[2024-05-05 14:05] LABS: BACTERIA,URINE MANY /HPF (0-FEW/HPF)
[2024-05-05] MEDS: Ondansetron 4 MG/2 ML SDV IVPUSH ONE (14:48)
[2024-05-05] MEDS: Morphine 4 MG/ML Syringe IVPUSH ONE (14:48)
[2024-05-05] MEDS: cefTRIAXone 1 GM Vial IVPUSH ONE (14:56)
[2024-05-05 14:58] VITALS: BP 123/72; PULSE 68
[2024-05-05] MEDS: Morphine 4 MG/ML Syringe ONE (15:03)
[2024-05-05] MEDS: Ondansetron 4 MG/2 ML SDV ONE (15:04)
[2024-05-05] MEDS: Take Home: Sulfamethoxazole/Trimethoprim 800-160 MG Tab, 6 Tab Pack PO ONE (15:42)
== END 2024-05-05 15:43 ==
LOC: DL.ED 09:21
DX: K52.9 Noninfective gastroenteritis and colitis, unspecified (principal); N39.0 Urinary tract infection, site not specified; N13.4 Hydroureter; N28.89 Other specified disorders of kidney and ureter; E78.00 Pure hypercholesterolemia, unspecified; I10 Essential (primary) hypertension; K21.9 Gastro-esophageal reflux disease without esophagitis; E11.9 Type 2 diabetes mellitus without complications; E66.9 Obesity, unspecified; Z86.16 Personal history of COVID-19; Z79.4 Long term (current) use of insulin; Z79.84 Long term (current) use of oral hypoglycemic drugs; Z79.899 Other long term (current) drug therapy; Z88.5 Allergy status to narcotic agent; Z88.8 Allergy status to other drugs, medicaments and biological substances
CPT/HCPCS: 36415; 74176; 80053; 81001; 83690; 83735; 84484; 84703; 85025; 85610; 86140; 87086; 87088; 87186; 93005; 96361; 96374; 96375; 99284; A9270; J0696; J2270; J2405; J7030

== ENCOUNTER 2024-11-21 12:28 | Emergency (ER) | payer OTHER, MEDICAID ==
[2024-11-21 12:53] VITALS: BP 143/85; PULSE 83
== END 2024-11-21 13:05 | disposition home or self-care (01) ==
LOC: DL.ED 12:28
DX: S49.92XA Unspecified injury of left shoulder and upper arm, initial encounter (principal); I10 Essential (primary) hypertension; E11.9 Type 2 diabetes mellitus without complications; E66.9 Obesity, unspecified; E78.00 Pure hypercholesterolemia, unspecified; K21.9 Gastro-esophageal reflux disease without esophagitis; M19.90 Unspecified osteoarthritis, unspecified site; Z88.8 Allergy status to other drugs, medicaments and biological substances; Z88.6 Allergy status to analgesic agent; Z79.899 Other long term (current) drug therapy; Z79.4 Long term (current) use of insulin; Z79.84 Long term (current) use of oral hypoglycemic drugs; Z86.16 Personal history of COVID-19; Z68.39 Body mass index [BMI] 39.0-39.9, adult; V43.53XA Car driver injured in collision with pick-up truck in traffic accident, initial encounter; Y92.410 Unspecified street and highway as the place of occurrence of the external cause
CPT/HCPCS: 73030-LT; 99283; 99284